=== PATIENT | male | born 1965 | race Two or more races ===

== ENCOUNTER 2016-05-24 14:02 | Inpatient (IN) | payer OTHER, MEDICAID ==
[2016-05-24] VITALS (8 sets, daily range): BP systolic 107–136; BP diastolic 47–76
[~2016-05-24] VITALS: Ht 167.6 cm; Wt 71.7 kg
[~2016-05-24 14:02] MED LIST: ALPRAZOLAM0.25 MG ORAL; CALCIUM 500 MG1 EAC1 PO; CLARITIN10 M2 ORAL; CREON DR 24,001 EACH PO; FUROSEMIDE40 MG ORAL; GENVOYA TABLET1 EACH PO; HIV meds; IMODIUM2 MG ORAL; MOVANTIK25 MG PO; OXYCODONE HCL15 M1 ORAL; SPIRONOLACTONE50 MG ORAL; STRIBILD TABLE1 EACH PO; WELLBUTRIN XL150 MG ORAL
[2016-05-24] MEDS ORDERED: Pantoprazole Inj IV ONE (14:30)
[2016-05-24 14:54] LABS: MEAN CORPUSCULAR HEMOGLOBIN 28.8 PG (27.0-31.0); MEAN CORPUSCULAR HGB CONC 32.7 G/DL (32.0-36.0); MEAN CORPUSCULAR VOLUME 88 FL (80-99); PLATELET COUNT 343 K/UL (150-450); RED BLOOD COUNT 2.23 M/UL (4.70-6.10); RED CELL DISTRIBUTION WIDTH 16.3 % (11.6-14.8); WHITE BLOOD COUNT 11.9 K/UL (4.8-10.8)
[2016-05-24 15:07] LABS: INR 1.1 (0.9-1.1)
[2016-05-24 15:13] LABS: ALANINE AMINOTRANSFERASE 22 U/L (3-41); ANION GAP 16 (5-15); ASPARTATE AMINO TRANSFERASE 26 U/L (5-40); CALCIUM 7.1 mg/dL (8.6-10.2); CARBON DIOXIDE 21 mEQ/L (20-30); CHLORIDE 95 mEQ/L (98-107); GLOMERULAR FILTRATION RATE > 60 mL/min (>60); HEMOLYSIS 1; LIPASE 25 U/L (< 60); POTASSIUM 4.4 mEQ/L (3.4-4.9); REFLEX LACTIC ACID YES OR NO YES; SODIUM 132 mEQ/L (135-145)
[2016-05-24 15:23] LABS: CKMB 2.3 ng/mL (< 6.7)
[2016-05-24 15:25] LABS: TROPONIN I < 0.30 ng/mL (<=0.30)
[2016-05-24] MEDS ORDERED: cefTRIAXone 1 GM in NS 55 ML IVPB ONE (16:00)
--- NOTE | 2016-05-24 16:01 | Emergency Room Report ---
History of Present Illness General Chief Complaint: Gastrointestinal Bleed Source: Patient Present Illness HPI 50-year-old male presents ED her evaluation. States the last 3 days he's been noticing blood in his stool. Dark stools with blood in the toilet. Denies any pain. States he feels weak. States that is taking indomethacin for a long time for vague abdominal pain. Patient denies taking any other blood thinners. Notes history of HIV. States he is compliant with his medications.Shortness of breath. Denies cough. Denies fevers or chills. Denies chest pain. No other aggravating relieving factors. Denies any other associated symptom Allergies: Coded Allergies: No Known Allergies (Unverified , 09/12/14) Patient History Past Medical History: other - HIV Past Surgical History: none Pertinent Family History: none Social History: Denies: alcohol use, drug use, smoking Immunizations: UTD Reviewed Nursing Documentation: PMH: Agreed, PSxH: Agreed Nursing Documentation-PMH Past Medical History: No History, Except For Hx Gastrointestinal Problems: Yes Review of Systems All Other Systems: negative except mentioned in HPI Physical Exam Vital Signs Date Time Temp Pulse Resp B/P Pulse Ox O2 Delivery O2 Flow Rate FiO2 05/24/16 14:12 98.1 122 28 124/59 100 Room Air Sp02 EP Interpretation: reviewed, normal General Appearance: no apparent distress, alert, GCS 15, non-toxic Head: normocephalic, atraumatic Eyes: bilateral eye PERRL, bilateral eye normal inspection ENT: hearing grossly normal, normal pharynx, no angioedema, normal voice Neck: full range of motion, supple/symm/no masses Respiratory: chest non-tender, lungs clear, normal breath sounds, speaking full sentences Cardiovascular #1: regular rate, rhythm, no edema Cardiovascular #2: 2+ carotid (R), 2+ carotid (L), 2+ radial (R), 2+ radial (L) , 2+ dorsalis pedis (R), 2+ dorsalis pedis (L) Gastrointestinal: normal bowel sounds, non tender, soft, non-distended, no guarding, no rebound Rectal: deferred Genitourinary: normal inspection, no CVA tenderness Musculoskeletal: back normal, gait/station normal, normal range of motion, non- tender Neurologic: alert, oriented x3, responsive, motor strength/tone normal, sensory intact, speech normal Psychiatric: judgement/insight normal, memory normal, mood/affect normal, no suicidal/homicidal ideation Reflexes: 3+ bicep (R), 3+ bicep (L), 3+ tricep (R), 3+ tricep (L), 3+ knee (R) , 3+ knee (L) Skin: normal color, no rash, warm/dry, well hydrated Lymphatic: no adenopathy Procedures Critical Care Time Critical Care Time i. I feel this is a highly complex case requiring extensive working including EKG/Rhythm strip, Xray/CT/US, Blood/urine lab work, repeat exams while in ED, and administration of strong opiates/narcotics for pain control, admission to hospital or close patient follow up. Total time: 30 min bedside evaluation and treatment excludes procedures (EKG). Reason for critical care: low Hb, LGIB Possible complications: hypotension, hypertension, NM, shock, arrhythmias, metabolic acidosis, end organ damage, respiratory failure. Interventions: labs, IVFs, EKG, CXR. Protonix. PRBCs Course: Patient brought in for blood in stool. Feeling weak. Hemoglobin 6.4. Vital stable. Given Protonix. Given 2 units PRBCs. Consultations: nursing staff, EMS, family Performed by: Dr Sellers Tolerated well condition = serious j. because of unstable vital signs this patient had a condition that could potentially threaten life or limb. I feel this is a critical patient who required my full attention while patient was considered critical. Total Critical Care Time excluding procedures was greater than 35 minutes Medical Decision Making Diagnostic Impression: Primary Impression: Lower GI bleed Additional Impression: Anemia Qualified Codes: D64.9 - Anemia, unspecified ER Course Hospital Course 50-year-old M presents to ED with rectal bleeding Differential diagnoses include: UGIB, LGIB, hemorrhoids Clinical course Patient placed on stretcher. equipment monitor phototypesetting. After initial history and physical I ordered labs, IV fluids, EKG, CXR. protonix Labs - minimal leukocytosis, Hb 6.4. electrolytes ok. trop negative, lactate 2.4 EKG - NSR, no acute changes CXR - some atelectasis, no acute infiltrate Given IVFs. Given Abx. given PRBCs Case discussed with Dr. Cade and he agreed to accept the patient to his service for further care and support. Dr amaya consulted I feel this is a highly complex case requiring extensive working including EKG/ Rhythm strip, Xray/CT/US, Blood/urine lab work, repeat exams while in ED, and administration of strong opiates/narcotics for pain control, admission to hospital or close patient follow up. Diagnosis - LGIB, anemia Patient admitted to telemetry in serious condition Labs Test 05/24/16 14:30 05/24/16 15:30 White Blood Count 11.9 K/UL (4.8-10.8) Red Blood Count 2.23 M/UL (4.70-6.10) Hemoglobin 6.4 G/DL (14.2-18.0) Hematocrit 19.7 % (42.0-52.0) Mean Corpuscular Volume 88 FL (80-99) Mean Corpuscular Hemoglobin 28.8 PG (27.0-31.0) Mean Corpuscular Hemoglobin Concent 32.7 G/DL (32.0-36.0) Red Cell Distribution Width 16.3 % (11.6-14.8) Platelet Count 343 K/UL (150-450) Mean Platelet Volume 7.0 FL (6.5-10.1) Neutrophils (%) (Auto) % (45.0-75.0) Lymphocytes (%) (Auto) % (20.0-45.0) Monocytes (%) (Auto) % (1.0-10.0) Eosinophils (%) (Auto) % (0.0-3.0) Basophils (%) (Auto) % (0.0-2.0) Prothrombin Time 11.0 SEC (9.30-11.50) Prothromb Time International Ratio 1.1 (0.9-1.1) Activated Partial Thromboplast Time 21 SEC (23-33) Sodium Level 132 mEQ/L (135-145) Potassium Level 4.4 mEQ/L (3.4-4.9) Chloride Level 95 mEQ/L (98-107) Carbon Dioxide Level 21 mEQ/L (20-30) Anion Gap 16 (5-15) Blood Urea Nitrogen 34 mg/dL (7-23) Creatinine 1.0 mg/dL (0.7-1.2) Estimat Glomerular Filtration Rate > 60 mL/min (>60) Glucose Level 135 mg/dL (74-106) Lactic Acid Level 2.40 mmol/L (0.66-2.22) Calcium Level 7.1 mg/dL (8.6-10.2) Total Bilirubin < 0.2 mg/dL (0.0-1.2) Aspartate Amino Transf (AST/SGOT) 26 U/L (5-40) Alanine Aminotransferase (ALT/SGPT) 22 U/L (3-41) Alkaline Phosphatase 68 U/L (40-129) Total Creatine Kinase 115 U/L (38-174) Creatine Kinase MB 2.3 ng/mL (< 6.7) Creatine Kinase MB Relative Index 2.0 Troponin I < 0.30 ng/mL (<=0.30) Total Protein 5.0 g/dL (6.6-8.7) Albumin 2.5 g/dL (3.5-5.2) Globulin 2.5 g/dL Albumin/Globulin Ratio 1.0 (1.0-2.7) Lipase 25 U/L (< 60) EKG Diagnostic Results Rate: normal Rhythm: NSR ST Segments: no acute changes ASA given to the pt in ED: No Rhythm Strip Diag. Results EP Interpretation: yes Rhythm: NSR, no PVC's, no ectopy Chest X-Ray Diagnostic Results EP Interpretation: Yes Findings: no consolidation, no effusion, no pneumothorax, no acute cardiopulmonary disease Number of Views: 1 Last Vital Signs Date Time Temp Pulse Resp B/P Pulse Ox O2 Delivery O2 Flow Rate FiO2 05/24/16 15:23 101 22 117/76 100 Room Air 05/24/16 14:22 98.1 Status: improved Disposition: ADMITTED INPATIENT Condition: Serious Referrals: ELINA MOORE (PCP) OLIVIA SELLERS M.D. May 24, 2016 16:01
[2016-05-24 16:07] LABS: LYMPHOCYTES % (MANUAL) 18 % (20-45); NEUTROPHILS % (MANUAL) 76 % (45-75); TOTAL CELLS COUNTED 100
[2016-05-24 16:08] LABS: ANISOCYTOSIS 2+; HYPOCHROMASIA 2+; MICROCYTES 2+; POLYCHROMASIA 1+
[2016-05-24 16:09] LABS: BAND NEUTROPHILS % (MANUAL) 0 % (0-8); BASOPHILS % (MANUAL) 0 % (0-2); EOSINOPHILS % (MANUAL) 0 % (0-3); PLATELET ESTIMATE ADEQUATE; PLATELET MORPHOLOGY NORMAL
--- NOTE | 2016-05-24 18:12 | GI Initial Consult Note ---
History of Present Illness General Date patient seen: May 24, 2016 Time patient seen: 18:12 Reason for Hospitalization: Gastrointestinal Bleed Referring physician: Rayo Reason for Consultation: UGIB Present Illness HPI 50-year-old male presents ED her evaluation. States the last 3 days he's been noticing blood in his stool. Dark stools with blood in the toilet. Denies any pain. States he feels weak. States that is taking indomethacin for a long time for vague abdominal pain. Patient denies taking any other blood thinners. Notes history of HIV. States he is compliant with his medications.Shortness of breath. Denies cough. Denies fevers or chills. Denies chest pain. No other aggravating relieving factors. Denies any other associated symptom GI CONSULT: HPI as noted above. GI consulted for dark stools most likely from UGIB. Pt seen in ER, awake A&Ox4 NAD c/o of nausea without vomiting. According to the the patient he has been having dark stools x 3 days. This is the first episode that has occurred to him. Social ETOH use, denies tobacco and IVDA use. Occasional NSAID use for arthritic pain. Pt presents today anemia due to acute blood loss with min leukocytosis. No history of endoscopic procedures. Labs - minimal leukocytosis, Hb 6.4. electrolytes ok. trop negative, lactate 2.4 EKG - NSR, no acute changes CXR - some atelectasis, no acute infiltrate Given IVFs. Given Abx. given PRBCs Home Meds Reported Medications Elvitegr/Cobicist/Emtric/Tenof (STRIBILD TABLET) 1 Each Tablet, 1 EACH PO DAILY , TAB 03/31/15 Bupropion Hcl* (WELLBUTRIN XL*) 150 Mg Tab.er.24h, 150 MG ORAL DAILY for 30 Days , TAB 0 Refills 03/31/15 Calcium Carbonate/Vitamin D3 (Calcium 500 mg Chewable Tablet) 1 Each Tab.chew, 1 EACH PO DAILY, TAB 03/31/15 Alprazolam* (XANAX*) 0.25 Mg Tablet, 0.25 MG ORAL DAILY, TAB 03/31/15 Loperamide HCl (Loperamide) 2 Mg Cap, 2 MG ORAL QID, #20 CAP 0 Refills 03/31/15 Loratadine (CLARITIN) 10 Mg Capsule, 10 MG ORAL DAILY, CAP 2/22/16 Elviteg/Jessica/Emtric/Tenofo Ala (Genvoya Tablet) 1 Each Tablet, 1 EACH PO DAILY, TAB 03/31/15 Lipase/Protease/Amylase (VÍCTOR WALTERS 24,000 UNITS CAPSULE) 1 Each Capsule.dr, 1 EACH PO TID, CAP 03/31/15 Naloxegol Oxalate (Movantik) 25 Mg Tablet, 25 MG PO DAILY, TAB 03/27/15 Spironolactone* (ALDACTONE*) 50 Mg Tablet, 100 MG ORAL DAILY, TAB 03/27/15 Furosemide* (LASIX*) 40 Mg Tablet, 20 MG ORAL DAILY, TAB 03/27/15 Oxycodone Hcl* (OXYCODONE HCL*) 15 Mg Tablet, 15 MG ORAL Q12HR Y for For Pain, # 30 TAB 0 Refills 03/27/15 Med list reviewed/reconciled: Yes Allergies: Coded Allergies: No Known Allergies (Unverified , 09/12/14) Patient History History Provided By: Patient, Medical Record PMH Narrative Past Medical History: other - HIV Past Surgical History: none Pertinent Family History: none Social History: Denies: alcohol use, drug use, smoking Immunizations: UTD Reviewed Nursing Documentation: PMH: Agreed, PSxH: Agreed Nursing Documentation-PMH Past Medical History: No History, Except For Hx Gastrointestinal Problems: Yes Social History: Reports: alcohol use - social Review of Systems All Other Systems: negative except mentioned in HPI Physical Exam Vital Signs Date Time Temp Pulse Resp B/P Pulse Ox O2 Delivery O2 Flow Rate FiO2 05/24/16 14:12 98.1 122 28 124/59 100 Room Air Sp02 EP Interpretation: reviewed Labs Laboratory Tests Test 05/24/16 14:30 05/24/16 15:30 White Blood Count 11.9 K/UL (4.8-10.8) H Red Blood Count 2.23 M/UL (4.70-6.10) L Hemoglobin 6.4 G/DL (14.2-18.0) *L Hematocrit 19.7 % (42.0-52.0) L Mean Corpuscular Volume 88 FL (80-99) Mean Corpuscular Hemoglobin 28.8 PG (27.0-31.0) Mean Corpuscular Hemoglobin Concent 32.7 G/DL (32.0-36.0) Red Cell Distribution Width 16.3 % (11.6-14.8) H Platelet Count 343 K/UL (150-450) Mean Platelet Volume 7.0 FL (6.5-10.1) Neutrophils (%) (Auto) % (45.0-75.0) Lymphocytes (%) (Auto) % (20.0-45.0) Monocytes (%) (Auto) % (1.0-10.0) Eosinophils (%) (Auto) % (0.0-3.0) Basophils (%) (Auto) % (0.0-2.0) Differential Total Cells Counted 100 Neutrophils % (Manual) 76 % (45-75) H Lymphocytes % (Manual) 18 % (20-45) L Monocytes % (Manual) 6 % (1-10) Eosinophils % (Manual) 0 % (0-3) Basophils % (Manual) 0 % (0-2) Band Neutrophils 0 % (0-8) Platelet Estimate Adequate Platelet Morphology Normal Polychromasia 1+ Hypochromasia 2+ Anisocytosis 2+ Microcytosis 2+ Prothrombin Time 11.0 SEC (9.30-11.50) Prothromb Time International Ratio 1.1 (0.9-1.1) Activated Partial Thromboplast Time 21 SEC (23-33) L Sodium Level 132 mEQ/L (135-145) L Potassium Level 4.4 mEQ/L (3.4-4.9) Chloride Level 95 mEQ/L (98-107) L Carbon Dioxide Level 21 mEQ/L (20-30) Anion Gap 16 (5-15) H Blood Urea Nitrogen 34 mg/dL (7-23) H Creatinine 1.0 mg/dL (0.7-1.2) Estimat Glomerular Filtration Rate > 60 mL/min (>60) Glucose Level 135 mg/dL (74-106) H Lactic Acid Level 2.40 mmol/L (0.66-2.22) H 1.90 mmol/L (0.66-2.22) Calcium Level 7.1 mg/dL (8.6-10.2) L Total Bilirubin < 0.2 mg/dL (0.0-1.2) Aspartate Amino Transf (AST/SGOT) 26 U/L (5-40) Alanine Aminotransferase (ALT/SGPT) 22 U/L (3-41) Alkaline Phosphatase 68 U/L (40-129) Total Creatine Kinase 115 U/L (38-174) Creatine Kinase MB 2.3 ng/mL (< 6.7) Creatine Kinase MB Relative Index 2.0 Troponin I < 0.30 ng/mL (<=0.30) Total Protein 5.0 g/dL (6.6-8.7) L Albumin 2.5 g/dL (3.5-5.2) L Globulin 2.5 g/dL Albumin/Globulin Ratio 1.0 (1.0-2.7) Lipase 25 U/L (< 60) General Appearance: well appearing, no apparent distress, alert Head: normocephalic EENT: PERRL/EOMI, normal ENT inspection Neck: supple Respiratory: normal breath sounds, no respiratory distress Cardiovascular: normal rate Gastrointestinal: normal inspection, non tender, soft, normal bowel sounds Rectal: deferred Genitourinary: normal inspection Musculoskeletal: back normal Neurologic: normal inspection, alert, oriented x3, responsive Psychiatric: normal inspection, judgement/insight normal, memory normal Skin: normal inspection, normal color, no rash, warm/dry Lymphatic: normal inspection, no adenopathy GI: Plan Problems: (1) Upper GI bleed (2) Black stool (3) Leukocytosis (4) Anemia (5) Protein malnutrition Plan pt scheduled for EGD tomorrow to evaluate dark stools - okay for CLD when admitted to the floor, NPO @ MN. ordered protonix gtt monitor H&H, transfuse prn if Hgb < 7.0 hold all blood thinners abx fu labs Discussed with Dr. Macario. Thank you for referring this patient, we will follow. Gloria Patrick N.P. May 24, 2016 18:12
[2016-05-24 19:47] LABS: APPEARANCE,URINE CLEAR; KETONES,URINE 3+ (NEGATIVE); LEUKOCYTE ESTERASE ,URINE NEGATIVE (NEGATIVE); NITRITE,URINE NEGATIVE (NEGATIVE); PH,URINE 6.5 (4.5-8.0); PROTEIN,URINE NEGATIVE (NEGATIVE); UROBILINOGEN,URINE NORMAL MG/DL (0.0-1.0)
[2016-05-24] MEDS ORDERED: Pantoprazole Inj ONE (20:17)
[2016-05-24] MEDS: Pantoprazole 80 MG in NS 250 ML IV SCH (20:23)
[2016-05-24] MEDS ORDERED: Morphine Sulfate 4mg/ml Inj IVP ONE (21:15)
[2016-05-25] VITALS (12 sets, daily range): BP systolic 110–141; BP diastolic 53–76
[2016-05-25] MEDS ORDERED: Morphine Sulfate 4mg/ml Inj IVP ONE (01:45)
[2016-05-25 06:23] LABS: MEAN CORPUSCULAR HGB CONC 33.4 G/DL (32.0-36.0); MEAN CORPUSCULAR VOLUME 90 FL (80-99); MEAN PLATELET VOLUME 6.9 FL (6.5-10.1); PLATELET COUNT 245 K/UL (150-450); RED BLOOD COUNT 2.29 M/UL (4.70-6.10); WHITE BLOOD COUNT 14.3 K/UL (4.8-10.8)
[2016-05-25] MEDS: Pantoprazole 80 MG in NS 250 ML IV SCH ×3 (06:30→19:41)
[2016-05-25 06:35] LABS: INR 1.2 (0.9-1.1); PROTHROMBIN TIME 12.3 SEC (9.30-11.50)
[2016-05-25 06:41] LABS: ANION GAP 11 (5-15); CALCIUM 6.2 mg/dL (8.6-10.2); CARBON DIOXIDE 21 mEQ/L (20-30); CHLORIDE 103 mEQ/L (98-107); GLOMERULAR FILTRATION RATE > 60 mL/min (>60); HEMOLYSIS 0; POTASSIUM 4.6 mEQ/L (3.4-4.9); SODIUM 135 mEQ/L (135-145)
--- NOTE | 2016-05-25 09:04 | Diagnostic Imaging Report ---
Indication: WEAK Technique: One view of the chest Comparison: none Findings: Bands of atelectasis are seen in the left perihilar region. Lungs and pleural spaces are otherwise clear. Heart size is normal Impression: No acute process
[2016-05-25 10:21] LABS: ANISOCYTOSIS 1+; BAND NEUTROPHILS % (MANUAL) 0 % (0-8); BASOPHILS % (MANUAL) 0 % (0-2); EOSINOPHILS % (MANUAL) 0 % (0-3); HYPOCHROMASIA 1+; LYMPHOCYTES % (MANUAL) 16 % (20-45); NEUTROPHILS % (MANUAL) 76 % (45-75); NUCLEATED RED BLOOD CELLS 2 /100 WBC; PLATELET ESTIMATE ADEQUATE; PLATELET MORPHOLOGY NORMAL; TOTAL CELLS COUNTED 100
[2016-05-25 10:22] LABS: POLYCHROMASIA 2+
[2016-05-25] MEDS ORDERED: Pneumococcal Vaccine 25mcg/0.5ml IM ONE (12:00)
[2016-05-25] MEDS ORDERED: Meningococcal Polysacc Vaccine Inj SUBQ ONE (12:00)
[2016-05-25] MEDS ORDERED: NS 550ML IV ONE (12:03)
--- NOTE | 2016-05-25 12:06 | Pre-Procedure Note/Attestation ---
Pre-Procedure Note/Attestation Complete Prior to Procedure Planned Procedure: not applicable Procedure Narrative: egd Indications for Procedure Pre-Operative Diagnosis: gib Attestation I attest that I discussed the nature of the procedure; its benefits; risks and complications; and alternatives (and the risks and benefits of such alternatives ), prior to the procedure, with the patient (or the patient's legal outside dealer sales representative). I attest that, if there was a reasonable possibility of needing a blood transfusion, the patient (or the patient's legal outside dealer sales representative) was given the [facility] standardized written summary, pursuant to the Srinivas Larissa Blood Safety Act ([place] Health and Safety Code # 1645, as amended). I attest that I re-evaluated the patient just prior to the surgery and that there has been no change in the patient's H&P, except as documented below: JET ORLAND May 25, 2016 12:06
--- NOTE | 2016-05-25 12:17 | Endoscopy Procedure Note ---
Endoscopy Procedure Note Indication for Procedure: gib Procedures Performed: EGD Operative Findings/Diagnosis: gastritis Specimen: yes Pt Tolerated Procedure Well: Yes Estimated Blood Loss: none Anesthesiologist: fam Anesthesia: MAC Implant(s) used?: No 50 yrs or older w/o bx or poly: Not Applicable 10yrs. F/U not recommended: Not Applicable JET ROLAND May 25, 2016 12:17
--- NOTE | 2016-05-25 12:25 | Anethesia Preoperative Eval ---
Anesthesia Pre-op PMH/ROS General Date of Evaluation: May 25, 2016 Anesthesiologist: Samy ASA Score: ASA 2 Mallampati Score Class I : Soft palate, uvula, fauces, pillars visible Class II: Soft palate, uvula, fauces visible Class III: Soft palate, base of uvula visible Class IV: Only hard plate visible Mallampati Classification: Class II Surgeon: Renaldo Diagnosis: GI bleed Surgical Procedure: EGD Anesthesia History: none Family History: no anesthesia problems Allergies: Coded Allergies: No Known Allergies (Unverified , 09/12/14) Medications: see eMAR Past Medical History Gastrointestinal/Genitourinary: Reports: GERD, Denies: CRI, ESRD, other Neurologic/Psychiatric: Reports: depression/anxiety, Denies: CVA, TIA, dementia, other Endocrine: Denies: DM, hypothyroidism, other, steroids HEENT: Denies: OUZINKIE (L), OUZINKIE (R), cataract (L), cataract (R), glaucoma, other Hematology/Immune: Reports: other - HIV, Denies: DVT, anemia, bleeding disorder Musculoskeletal/Integumentary: Denies: DDD, DJD, OA, RA, edema, other PSxH Narrative: Denies Anesthesia Pre-op Phys. Exam Physician Exam Last Vital Signs Date Time Temp Pulse Resp B/P Pulse Ox O2 Delivery O2 Flow Rate FiO2 05/25/16 11:27 98.1 96 20 141/68 99 Room Air Constitutional: NAD Cardiovascular: RRR Respiratory: CTA Airway Exam Mallampati Score: Class II MO: full ROM: full Teeth: intact Anesthesia Pre-op A/P Labs Hematology Test 05/24/16 14:30 05/25/16 05:55 White Blood Count 11.9 K/UL (4.8-10.8) H 14.3 K/UL (4.8-10.8) H Red Blood Count 2.23 M/UL (4.70-6.10) L 2.29 M/UL (4.70-6.10) L Hemoglobin 6.4 G/DL (14.2-18.0) *L 6.9 G/DL (14.2-18.0) *L Hematocrit 19.7 % (42.0-52.0) L 20.6 % (42.0-52.0) L Mean Corpuscular Volume 88 FL (80-99) 90 FL (80-99) Mean Corpuscular Hemoglobin 28.8 PG (27.0-31.0) 30.0 PG (27.0-31.0) Mean Corpuscular Hemoglobin Concent 32.7 G/DL (32.0-36.0) 33.4 G/DL (32.0-36.0) Red Cell Distribution Width 16.3 % (11.6-14.8) H 15.0 % (11.6-14.8) H Platelet Count 343 K/UL (150-450) 245 K/UL (150-450) Mean Platelet Volume 7.0 FL (6.5-10.1) 6.9 FL (6.5-10.1) Neutrophils (%) (Auto) % (45.0-75.0) % (45.0-75.0) Lymphocytes (%) (Auto) % (20.0-45.0) % (20.0-45.0) Monocytes (%) (Auto) % (1.0-10.0) % (1.0-10.0) Eosinophils (%) (Auto) % (0.0-3.0) % (0.0-3.0) Basophils (%) (Auto) % (0.0-2.0) % (0.0-2.0) Differential Total Cells Counted 100 100 Neutrophils % (Manual) 76 % (45-75) H 76 % (45-75) H Lymphocytes % (Manual) 18 % (20-45) L 16 % (20-45) L Monocytes % (Manual) 6 % (1-10) 8 % (1-10) Eosinophils % (Manual) 0 % (0-3) 0 % (0-3) Basophils % (Manual) 0 % (0-2) 0 % (0-2) Band Neutrophils 0 % (0-8) 0 % (0-8) Platelet Estimate Adequate Adequate Platelet Morphology Normal Normal Polychromasia 1+ 2+ Hypochromasia 2+ 1+ Anisocytosis 2+ 1+ Microcytosis 2+ Nucleated Red Blood Cells 2 /100 WBC Coagulation Test 05/24/16 14:30 05/25/16 05:55 Prothrombin Time 11.0 SEC (9.30-11.50) 12.3 SEC (9.30-11.50) H Prothromb Time International Ratio 1.1 (0.9-1.1) 1.2 (0.9-1.1) H Activated Partial Thromboplast Time 21 SEC (23-33) L 22 SEC (23-33) L Chemistry Test 05/24/16 14:30 05/24/16 15:30 05/25/16 05:55 Sodium Level 132 mEQ/L (135-145) L 135 mEQ/L (135-145) Potassium Level 4.4 mEQ/L (3.4-4.9) 4.6 mEQ/L (3.4-4.9) Chloride Level 95 mEQ/L (98-107) L 103 mEQ/L (98-107) Carbon Dioxide Level 21 mEQ/L (20-30) 21 mEQ/L (20-30) Anion Gap 16 (5-15) H 11 (5-15) Blood Urea Nitrogen 34 mg/dL (7-23) H 35 mg/dL (7-23) H Creatinine 1.0 mg/dL (0.7-1.2) 1.0 mg/dL (0.7-1.2) Estimat Glomerular Filtration Rate > 60 mL/min (>60) > 60 mL/min (>60) Glucose Level 135 mg/dL (74-106) H 133 mg/dL (74-106) H Lactic Acid Level 2.40 mmol/L (0.66-2.22) H 1.90 mmol/L (0.66-2.22) Calcium Level 7.1 mg/dL (8.6-10.2) L 6.2 mg/dL (8.6-10.2) L Total Bilirubin < 0.2 mg/dL (0.0-1.2) Aspartate Amino Transf (AST/SGOT) 26 U/L (5-40) Alanine Aminotransferase (ALT/SGPT) 22 U/L (3-41) Alkaline Phosphatase 68 U/L (40-129) Total Creatine Kinase 115 U/L (38-174) Creatine Kinase MB 2.3 ng/mL (< 6.7) Creatine Kinase MB Relative Index 2.0 Troponin I < 0.30 ng/mL (<=0.30) Total Protein 5.0 g/dL (6.6-8.7) L Albumin 2.5 g/dL (3.5-5.2) L Globulin 2.5 g/dL Albumin/Globulin Ratio 1.0 (1.0-2.7) Lipase 25 U/L (< 60) Studies Pre-op Studies: EKG - sr Risk Assessment & Plan Assessment: ASA II Plan: MAC Status Change Before Surgery: No Pre-Antibiotics Drug: N/A WILLIS LAND M.D. May 25, 2016 12:25
--- NOTE | 2016-05-25 12:28 | Immediate Post-Op Evaluation ---
Immediate Post-Op Evalulation Immediate Post-Op Evalulation Procedure: EGD Date of Evaluation: May 25, 2016 Time of Evaluation: 12:27 IV Fluids: 300 Blood Products: 0 Estimated Blood Loss: 0 Urinary Output: 0 Blood Pressure Systolic: 136 Blood Pressure Diastolic: 70 Pulse Rate: 92 Respiratory Rate: 16 O2 Sat by Pulse Oximetry: 99 Temperature (Fahrenheit): 98.9 Pain Score (1-10): 0 Nausea: No Vomiting: No Complications 0 Patient Status: awake, reacts, patent, none Hydration Status: adequate Drug: N/A WILLIS LAND M.D. May 25, 2016 12:28
[2016-05-25] MEDS ORDERED: Hyoscyamine 0.125mg tab ORAL PRN (13:30)
[2016-05-25] MEDS ORDERED: oxyCODONE 15mg IR tab ORAL PRN (13:30)
[2016-05-25] MEDS ORDERED: Morphine Sulfate 2mg/ml Inj IVP PRN (13:45)
[2016-05-25] MEDS ORDERED: Nulytely 4L ORAL ONE (15:00)
[2016-05-25] MEDS: Dicyclomine HCl 10mg/5ml oral soln ORAL SCH ×2 (18:00→21:00)
--- NOTE | 2016-05-25 18:37 | Procedure Note ---
DATE OF PROCEDURE: 05/25/2016 SURGEON: Jaswant Macario M.D. PROCEDURE: Upper endoscopy with biopsy. ANESTHESIOLOGIST: Dr. Lamb. INSTRUMENT: Olympus adult flexible upper endoscope. INDICATION: Upper GI bleeding. REASON FOR PROCEDURE: The procedure, risks, benefits, and possible consequences, including hemorrhage, aspiration, perforation and infection, and alternative treatments, were explained to the patient/legal guardian by Dr. Jaswant Macario and the patient/legal guardian understood and accepted these risks. DESCRIPTION OF PROCEDURE: After informed consent was obtained and the patient was adequately sedated, Olympus upper endoscope was advanced from mouth into the second portion of the duodenum and retroflexion was performed in the stomach. The patient had diffuse gastritis. Random biopsy from antrum was obtained to rule out H. pylori infection. Otherwise, the rest of the upper endoscopic examination is grossly within normal limits. The patient tolerated the procedure very well without any complication. SUMMARY OF FINDINGS: Gastritis, otherwise normal upper endoscopy examination. RECOMMENDATIONS: 1. Follow up biopsy results. 2. Plan for colonoscopy tomorrow. I want to thank, Dr. Mendez, for this kind referral. Jaswant Macario M.D. DR: ELIECER JOB#: [id number] CC: Patrick Mendez M.D.
[2016-05-25] MEDS: oxyCODONE 15mg IR tab ORAL PRN (23:59)
[2016-05-26] VITALS (12 sets, daily range): BP systolic 102–154; BP diastolic 45–88
[2016-05-26] MEDS ORDERED: Pantoprazole Inj ONE (02:34)
[2016-05-26] MEDS: Pantoprazole 80 MG in NS 250 ML IV SCH ×2 (03:54→23:09)
[2016-05-26] MEDS ORDERED: Propofol 10mg/ml 20ml IV ONE (07:00)
[2016-05-26] MEDS ORDERED: Lidocaine 1% MPF 10mg/ml 5ml ONE (07:00)
[2016-05-26] MEDS ORDERED: NS 550ML IV ONE (07:15)
--- NOTE | 2016-05-26 07:20 | Pre-Procedure Note/Attestation ---
Pre-Procedure Note/Attestation Complete Prior to Procedure Planned Procedure: not applicable Procedure Narrative: colonoscopy Indications for Procedure Pre-Operative Diagnosis: gib Attestation I attest that I discussed the nature of the procedure; its benefits; risks and complications; and alternatives (and the risks and benefits of such alternatives ), prior to the procedure, with the patient (or the patient's legal construction representative). I attest that, if there was a reasonable possibility of needing a blood transfusion, the patient (or the patient's legal construction representative) was given the [facility] standardized written summary, pursuant to the Srinivas Larissa Blood Safety Act ([place] Health and Safety Code # 1645, as amended). I attest that I re-evaluated the patient just prior to the surgery and that there has been no change in the patient's H&P, except as documented below: JET ROLAND May 26, 2016 07:20
[2016-05-26 07:37] LABS: MEAN CORPUSCULAR HEMOGLOBIN 30.4 PG (27.0-31.0); MEAN CORPUSCULAR HGB CONC 32.8 G/DL (32.0-36.0); MEAN CORPUSCULAR VOLUME 93 FL (80-99); MEAN PLATELET VOLUME 7.6 FL (6.5-10.1); PLATELET COUNT 241 K/UL (150-450); RED BLOOD COUNT 1.61 M/UL (4.70-6.10); RED CELL DISTRIBUTION WIDTH 18.5 % (11.6-14.8)
--- NOTE | 2016-05-26 07:41 | Anethesia Preoperative Eval ---
Anesthesia Pre-op PMH/ROS General Date of Evaluation: May 26, 2016 Time of Evaluation: 07:00 Anesthesiologist: bridger ASA Score: ASA 2 Mallampati Score Class I : Soft palate, uvula, fauces, pillars visible Class II: Soft palate, uvula, fauces visible Class III: Soft palate, base of uvula visible Class IV: Only hard plate visible Mallampati Classification: Class II Surgeon: monique Diagnosis: lower gi bleed Surgical Procedure: colonoscopy Anesthesia History: none Family History: no anesthesia problems Allergies: Coded Allergies: No Known Allergies (Unverified , 09/12/14) Medications: see eMAR Past Medical History Cardiovascular: Denies: CAD, HTN, [place], arrhythmia, other, valve dz Pulmonary: Denies: COPD, [place], asthma, other Gastrointestinal/Genitourinary: Reports: GERD Neurologic/Psychiatric: Reports: depression/anxiety Endocrine: Denies: DM, hypothyroidism, other, steroids Hematology/Immune: Reports: anemia Musculoskeletal/Integumentary: Denies: DDD, DJD, OA, RA, edema, other PSxH Narrative: egd Anesthesia Pre-op Phys. Exam Physician Exam Last Vital Signs Date Time Temp Pulse Resp B/P Pulse Ox O2 Delivery O2 Flow Rate FiO2 05/26/16 04:00 89 05/26/16 04:00 98.1 18 139/56 100 Room Air 05/25/16 12:32 2.0 Constitutional: NAD Neurologic: CN 2-12 intact Cardiovascular: RRR Respiratory: CTA Gastrointestinal: S/NT/ND Airway Exam Mallampati Classification 2 Mallampati Score: Class II MO: full ROM: full Dentures: no lower, no upper Anesthesia Pre-op A/P Labs Hematology Test 05/26/16 06:25 White Blood Count Pending Red Blood Count Pending Hemoglobin Pending Hematocrit Pending Mean Corpuscular Volume Pending Mean Corpuscular Hemoglobin Pending Mean Corpuscular Hemoglobin Concent Pending Red Cell Distribution Width Pending Platelet Count Pending Mean Platelet Volume Pending Neutrophils (%) (Auto) Pending Lymphocytes (%) (Auto) Pending Monocytes (%) (Auto) Pending Eosinophils (%) (Auto) Pending Basophils (%) (Auto) Pending Chemistry Test 05/26/16 06:25 Sodium Level Pending Potassium Level Pending Chloride Level Pending Carbon Dioxide Level Pending Blood Urea Nitrogen Pending Creatinine Pending Estimat Glomerular Filtration Rate Pending Glucose Level Pending Calcium Level Pending Total Bilirubin Pending Aspartate Amino Transf (AST/SGOT) Pending Alanine Aminotransferase (ALT/SGPT) Pending Alkaline Phosphatase Pending Total Protein Pending Albumin Pending Globulin Pending Studies Pre-op Studies: EKG - SR Risk Assessment & Plan Plan: mac Status Change Before Surgery: No Pre-Antibiotics Drug: none QUYNH SHAH CRNA May 26, 2016 07:41
[2016-05-26 07:50] LABS: ALANINE AMINOTRANSFERASE 14 U/L (3-41); ALBUMIN/GLOBULIN RATIO 1.1 (1.0-2.7); ANION GAP 11 (5-15); ASPARTATE AMINO TRANSFERASE 18 U/L (5-40); CALCIUM 6.6 mg/dL (8.6-10.2); CARBON DIOXIDE 24 mEQ/L (20-30); CHLORIDE 102 mEQ/L (98-107); CREATININE 0.9 mg/dL (0.7-1.2); GLOMERULAR FILTRATION RATE > 60 mL/min (>60); HEMOLYSIS 0; POTASSIUM 4.3 mEQ/L (3.4-4.9); SODIUM 137 mEQ/L (135-145); TOTAL PROTEIN 4.2 g/dL (6.6-8.7)
--- NOTE | 2016-05-26 07:54 | Endoscopy Procedure Note ---
Endoscopy Procedure Note Indication for Procedure: gib Procedures Performed: colonoscopy Operative Findings/Diagnosis: hemorrhoids Specimen: none Pt Tolerated Procedure Well: Yes Estimated Blood Loss: none Anesthesiologist: belle Anesthesia: MAC Implant(s) used?: No 50 yrs or older w/o bx or poly: Not Applicable 10yrs. F/U not recommended: Not Applicable JET ROLAND May 26, 2016 07:54
--- NOTE | 2016-05-26 07:59 | Immediate Post-Op Evaluation ---
Immediate Post-Op Evalulation Immediate Post-Op Evalulation Procedure: EGD Date of Evaluation: May 26, 2016 Time of Evaluation: 07:59 IV Fluids: 300 Blood Products: started Blood Pressure Systolic: 111 Blood Pressure Diastolic: 53 Pulse Rate: 70 Respiratory Rate: 14 O2 Sat by Pulse Oximetry: 98 Nausea: No Vomiting: No Complications none Patient Status: awake, patent Hydration Status: adequate Drug: none QUYNH SHAH CRNA May 26, 2016 07:59
--- NOTE | 2016-05-26 08:42 | 48 Hour Post Anesthesia Eval ---
Post Anesthesia Evaluation Procedure: colonscopy Date of Evaluation: May 26, 2016 Time of Evaluation: 08:42 Blood Pressure Systolic: 105 0: 48 Pulse Rate: 99 Respiratory Rate: 14 Temperature (Fahrenheit): 97.2 O2 Sat by Pulse Oximetry: 99 Airway: patent Nausea: No Vomiting: No Hydration Status: other - blood transfusion startd Mental Status/LOC: patient returned to baseline Post-Anesthesia Complications: none Follow-up care needed: N/A QUYNH SHAH CRNA May 26, 2016 08:42
[2016-05-26] MEDS: Dicyclomine HCl 10mg/5ml oral soln ORAL SCH ×4 (09:02→21:25)
[2016-05-26] MEDS ORDERED: NS 275ml ONE (09:52)
[2016-05-26] MEDS ORDERED: Tubing IV Secondary IV ONE (09:52)
[2016-05-26 10:51] LABS: ANISOCYTOSIS 1+; BAND NEUTROPHILS % (MANUAL) 0 % (0-8); BASOPHILS % (MANUAL) 0 % (0-2); EOSINOPHILS % (MANUAL) 0 % (0-3); HYPOCHROMASIA 2+; LYMPHOCYTES % (MANUAL) 13 % (20-45); NEUTROPHILS % (MANUAL) 80 % (45-75); NUCLEATED RED BLOOD CELLS 2 /100 WBC; PLATELET ESTIMATE ADEQUATE; PLATELET MORPHOLOGY NORMAL; POLYCHROMASIA 2+; TOTAL CELLS COUNTED 100
[2016-05-26 11:20] LABS: OTHERS PATHOLOGIST COMMENT
--- NOTE | 2016-05-26 12:39 | Diagnostic Imaging Report ---
Indication: Abdominal pain. History of GI bleed Technique: IV administration nonionic contrast. Arterial and venous phase spiral acquisitions obtained through the abdomen and pelvis. Multiplanar and 3-D reconstructions were generated. Total dose length product 854+953 mGycm. CTDIvol(s) 8, 24, 15, 17 mGy. Radiation dose was minimized using automated exposure control. Note that there was a delay between the arterial phase and late venous phase images, necessitating repeat contrast injection Comparison: Conventional CT abdomen 04/07/2015 Findings: No active contrast extravasation is demonstrated on the arterial phase images. However, on the delayed images, contrast is seen within the distal and terminal ileum, as well as throughout the colon. An actively extravasating lesion is not definitely demonstrated, however; suspect that contrast extravasation occurred in the interim between the 2 parts of the scan. There are scattered colonic diverticula. The wall of the jejunum is massively thickened, and there is also dilatation of the jejunum. The wall thickening extends well into the ileum, but the caliber of the small bowel gradually tapers. Of note, the intraluminal contrast within the small bowel is primarily seen within the nondilated distal and terminal ileum which does not demonstrate wall thickening. The superior mesenteric artery and proximal branches are patent without evidence of significant stenosis. There is moderate narrowing of the celiac origin. This may be from arcuate ligament compression. The inferior mesenteric artery is patent and nonstenotic. The small bowel wall thickening and dilatation were not evident previously. As well as reported previously, there is architectural distortion of the mesenteric root. The amount of abnormal soft tissue in this area appears decreased from the prior study. The downstream 3 cm above the superior mesenteric vein is patent. However upstream from this, the superior mesenteric vein is occluded. This was also evident previously. Extensive varices within the mesenteric root and periphery of the mesentery are again demonstrated. Congestion of the mesentery appears similar to the prior exam. The portal vein is patent. The appendix is not definitely demonstrated. No free or loculated intraperitoneal air is evident. There is trace ascites over the dome of the liver. Distal esophagus, stomach, duodenum are unremarkable. The liver, gallbladder, bile ducts, pancreas, spleen, right kidney are unremarkable. Left kidney demonstrates a subcentimeter low-attenuation cortical lesion which is too small to characterize but is also evident previously. The ureters and bladder are unremarkable. There are prominent but not frankly enlarged retroperitoneal lymph nodes. No pelvic mass or adenopathy. There are small bilateral pleural effusions. There is associated atelectasis at the lung bases. This is new since the previous study. The bones are unremarkable. When compared to the prior study, the focal fatty deposit in the left hepatic lobe is not evident currently. Impression: On the delayed phase images, there is contrast within the distal small bowel and the colon, indicative of active GI bleeding. Possibly due to the timing issues described above, the exact site/shortness of the bleeding is not demonstrated. Given the involvement of the distal ileum, most likely distal ileal source. 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 As described previously, there is evidence of desmoplastic response in the mesenteric root, also described previously. This is still evident although no associated mass is currently evident. The point of occlusion of the superior mesenteric vein is at the site of the desmoplasia, and likely related to it. There are again demonstrated fairly extensive mesenter -- ic varices, presumably related to such Massive small bowel wall thickening and dilatation, most striking proximally within the jejunum, but also involving the proximal and mid ileum. Findings are consistent with enteritis. It is conceivable that this is related to the mesenteric venous occlusion. However, as the mesenteric venous occlusion is not a new finding, other etiologies, especially infectious/inflammatory are more likely. No evidence of proximal mesenteric arterial insufficiency. Interestingly, the extravasated contrast is only seen within the normal distal small bowel, so the GI bleed could be unrelated to the small bowel abnormality Diverticulosis. No evidence of diverticulitis Small bilateral pleural effusions and associated basilar atelectasis Trace ascites Small subcentimeter low-attenuation left renal lesion, too small to characterize, most likely benign simple cortical cyst. Also evident previously. No further followup necessary Findings discussed by phone with Dr. Mendez at the time of interpretation The CT scanner at [facility] is accredited by the [employer] and the scans are performed using protocols designed to limit radiation exposure to as low as reasonably achievable to attain images of sufficient resolution adequate for diagnostic evaluation.
[2016-05-26] MEDS: oxyCODONE 15mg IR tab ORAL PRN ×2 (12:43→22:39)
--- NOTE | 2016-05-26 13:16 | History & Physical ---
History and Physical History & Physicial The patient is a 50 yo Latin male with HIV s/p ROHAN infection with chronic anasarca due to a ? scarred mass in the mesentery. He has a two day history of painless melena and some bright blood. Has been on HIV meds Genvoya and undetectable viral load. Also on TPN at home due to hypoalbuminemia and nuitritional deficiencies. PMH remarkable for HIV/AIDS with ROHAN and mesenteric mass. Also recurrent bouts of abdominal pain with possible chronic cholecystitits. No prior hx of GI bleed. Had recent bacterial pneumonia with pleurisy. Meds; Genvoya, oxycodone 15 mg, Indocin? 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 Abdomen soft, non-tender. Lungs: clear Hear :S1 S2 nl without murmur or gallop HEENT WNL, Neuro WNL. Alert, oriented. Assessment: GI bleed ? location HIV/AIDS s/p ROHAN Mesenteric mass Plan: GI consult with Dr. Macario, identify source/site of bleeding, transfuse, r/o coagulopathy, nuitritional supplementation ELINA Kohli MD May 26, 2016 13:16
--- NOTE | 2016-05-26 15:19 | Procedure Note ---
DATE OF PROCEDURE: 05/26/2016 PROCEDURE: Colonoscopy. SURGEON: Jaswant Macario M.D. ANESTHESIA: Per WILDLIFE BIOLOGIST, Emelia Gallegos. INSTRUMENT: Olympus adult flexible upper endoscope and colonoscope. INDICATION: GI bleeding. REASON FOR PROCEDURE: The procedure, risks, benefits, and possible consequences, including hemorrhage, aspiration, perforation and infection, and alternative treatments, were explained to the patient/legal guardian by Dr. Jaswant Macario and the patient/legal guardian understood and accepted these risks. DESCRIPTION OF PROCEDURE: After informed consent was obtained and the patient was adequately sedated, first rectal exam was performed, which was normal. Then, the scope was advanced from the rectum into the cecum, and then subsequently into terminal ileum. Quality of prep was good. The patient more in the right colon, to the cecum, there was some clots seen in the cecum intubated terminal ileum, there was also some blood in the terminal ileum. This suggested most likely a small bowel bleed. There is no lesion in the colon to explain the bleeding. There is no diverticula. There is no mass. There is no any ulceration or anything to explain the bleed in the colon, so most probably the patient's bleeding from the small intestine. At this time, the scope was slowly retrieved. Retroflexion of the rectum was performed and then procedure was terminated. SUMMARY OF FINDINGS: Active bleeding mostly from the small intestine, we seen blood clot in the colon and also in the terminal ileum. PLAN: We will recommend to do capsule endoscopy today, follow up with CT angiogram, and transfuse 4 units of packed RBC given the patient's hemoglobin is 4. Consider transferring to [facility] if we cannot find the source, so we cannot control his bleeding. I want to thank, Dr. Mendez, for this kind referral. Jaswant Macario M.D. DR: MARINA JOB#: [id number] CC: Patrick Mendez M.D.; Fax#: [phone]
[2016-05-26] MEDS: GENVOYA ORAL SCH (21:00)
[2016-05-27] VITALS (7 sets, daily range): BP systolic 111–138; BP diastolic 53–84
[2016-05-27 08:02] LABS: BASOPHILS % (AUTO) 0.6 % (0.0-2.0); EOSINOPHILS % (AUTO) 0.9 % (0.0-3.0); LYMPHOCYTES % (AUTO) 10.4 % (20.0-45.0); MEAN CORPUSCULAR HEMOGLOBIN 29.9 PG (27.0-31.0); MEAN CORPUSCULAR HGB CONC 33.5 G/DL (32.0-36.0); MEAN CORPUSCULAR VOLUME 89 FL (80-99); MEAN PLATELET VOLUME 7.2 FL (6.5-10.1); MONOCYTES % (AUTO) 8.8 % (1.0-10.0); NEUTROPHILS % (AUTO) 79.3 % (45.0-75.0); PLATELET COUNT 176 K/UL (150-450); RED CELL DISTRIBUTION WIDTH 14.4 % (11.6-14.8); WHITE BLOOD COUNT 11.7 K/UL (4.8-10.8)
[2016-05-27 08:17] LABS: ANION GAP 10 (5-15); CALCIUM 6.8 mg/dL (8.6-10.2); CARBON DIOXIDE 25 mEQ/L (20-30); CHLORIDE 98 mEQ/L (98-107); CREATININE 0.8 mg/dL (0.7-1.2); GLOMERULAR FILTRATION RATE > 60 mL/min (>60); HEMOLYSIS 5; POTASSIUM 3.7 mEQ/L (3.4-4.9); SODIUM 133 mEQ/L (135-145)
[2016-05-27] MEDS: Pantoprazole 80 MG in NS 250 ML IV SCH ×2 (08:37→18:12)
[2016-05-27] MEDS: Dicyclomine HCl 10mg/5ml oral soln ORAL SCH ×4 (08:38→21:57)
[2016-05-27] MEDS ORDERED: Tubing Blood Filter IV ONE (09:48)
[2016-05-27] MEDS ORDERED: NS 275ml ONE (09:48)
--- NOTE | 2016-05-27 11:47 | GI Progress Note ---
Assessment/Plan Problems: (1) Small bowel bleed requiring more than 4 units of blood in 24 hours, ICU, or surgery ICD Codes: K92.2 - Gastrointestinal hemorrhage, unspecified SNOMED: 13390629, 01122697 (2) Lower GI bleed ICD Codes: K92.2 - Gastrointestinal hemorrhage, unspecified SNOMED: 82601185 (3) Black stool ICD Codes: K92.1 - Melena SNOMED: 52124386, 882078589 (4) Protein malnutrition ICD Codes: E46 - Unspecified protein-calorie malnutrition SNOMED: 252466340 (5) Anemia ICD Codes: D64.9 - Anemia, unspecified SNOMED: 315487411 Qualifiers: Qualified Codes: D64.9 - Anemia, unspecified Status: unchanged Status Narrative Discussed with Dr. Macario. Assessment/Plan SUMMARY OF FINDINGS: Active bleeding mostly from the small intestine, we seen blood clot in the colon and also in the terminal ileum. APCT reviewed >> On the delayed phase images, there is contrast within the distal small bowel and the colon, indicative of active GI bleeding, see full report. H. Pylori negative pt on transfer list to [facility] fu Small bowel capsule endoscopy monitor H&H, transfuse prn s/p 4 units given yesterday cont ppi gtt ok for CLD fu labs Subjective Gastrointestinal/Abdominal: Reports: abdominal pain Subjective denies any blood in stool today Objective Last 24 Hour Vital Signs Date Time Temp Pulse Resp B/P Pulse Ox O2 Delivery O2 Flow Rate FiO2 05/27/16 11:17 98.1 70 18 123/53 98 Room Air 05/27/16 07:53 97.9 91 19 132/84 99 Room Air 05/27/16 04:15 98.1 75 20 123/68 99 Room Air 05/27/16 03:55 65 05/27/16 00:16 98.4 78 20 111/68 97 Room Air 05/27/16 00:10 98.0 77 20 118/66 97 Room Air 05/26/16 23:48 77 05/26/16 21:27 89 05/26/16 20:45 98.1 80 20 113/66 99 Room Air 05/26/16 20:06 98.0 89 20 150/88 98 Room Air 05/26/16 16:00 86 05/26/16 16:00 98.0 89 19 131/74 100 Room Air 05/26/16 12:00 99.5 90 20 154/55 100 Room Air 05/26/16 12:00 86 Intake and Output 05/26/16 05/27/16 19:00 07:00 Intake Total 690 ml 200 ml Balance 690 ml 200 ml Intake Oral 440 ml IV Total 250 ml 200 ml # Voids 3 2 # Bowel Movements 1 Laboratory Tests Test 05/27/16 07:05 White Blood Count 11.7 K/UL (4.8-10.8) H Red Blood Count 2.80 M/UL (4.70-6.10) L Hemoglobin 8.4 G/DL (14.2-18.0) #L Hematocrit 25.1 % (42.0-52.0) #L Mean Corpuscular Volume 89 FL (80-99) Mean Corpuscular Hemoglobin 29.9 PG (27.0-31.0) Mean Corpuscular Hemoglobin Concent 33.5 G/DL (32.0-36.0) Red Cell Distribution Width 14.4 % (11.6-14.8) Platelet Count 176 K/UL (150-450) Mean Platelet Volume 7.2 FL (6.5-10.1) Neutrophils (%) (Auto) 79.3 % (45.0-75.0) H Lymphocytes (%) (Auto) 10.4 % (20.0-45.0) L Monocytes (%) (Auto) 8.8 % (1.0-10.0) Eosinophils (%) (Auto) 0.9 % (0.0-3.0) Basophils (%) (Auto) 0.6 % (0.0-2.0) Sodium Level 133 mEQ/L (135-145) L Potassium Level 3.7 mEQ/L (3.4-4.9) Chloride Level 98 mEQ/L (98-107) Carbon Dioxide Level 25 mEQ/L (20-30) Anion Gap 10 (5-15) Blood Urea Nitrogen 21 mg/dL (7-23) Creatinine 0.8 mg/dL (0.7-1.2) Estimat Glomerular Filtration Rate > 60 mL/min (>60) Glucose Level 100 mg/dL (74-106) Calcium Level 6.8 mg/dL (8.6-10.2) L Height (Feet): 5 Height (Inches): 6.00 Weight (Pounds): 158 General Appearance: no apparent distress, alert Cardiovascular: normal rate Respiratory/Chest: no respiratory distress Abdominal Exam: soft Objective DATE OF PROCEDURE: 05/26/2016 PROCEDURE: Colonoscopy. SURGEON: Jaswant Macario M.D. INDICATION: GI bleeding. SUMMARY OF FINDINGS: Active bleeding mostly from the small intestine, we seen blood clot in the colon and also in the terminal ileum. PLAN: We will recommend to do capsule endoscopy today, follow up with CT angiogram, and transfuse 4 units of packed RBC given the patient's hemoglobin is 4. Consider transferring to [facility] if we cannot find the source, so we cannot control his bleeding. Gloria Patrick N.P. May 27, 2016 11:47
--- NOTE | 2016-05-27 11:50 | GI Progress Note ---
Assessment/Plan Problems: (1) Small bowel bleed requiring more than 4 units of blood in 24 hours, ICU, or surgery ICD Codes: K92.2 - Gastrointestinal hemorrhage, unspecified SNOMED: 77594123, 26163130 (2) Lower GI bleed ICD Codes: K92.2 - Gastrointestinal hemorrhage, unspecified SNOMED: 53266302 (3) Black stool ICD Codes: K92.1 - Melena SNOMED: 29396058, 159261415 (4) Protein malnutrition ICD Codes: E46 - Unspecified protein-calorie malnutrition SNOMED: 138963127 (5) Anemia ICD Codes: D64.9 - Anemia, unspecified SNOMED: 445792330 Qualifiers: Qualified Codes: D64.9 - Anemia, unspecified Status: unchanged Status Narrative Discussed with Dr. Macario. Assessment/Plan SUMMARY OF FINDINGS: Active bleeding mostly from the small intestine, we seen blood clot in the colon and also in the terminal ileum. APCT reviewed >> On the delayed phase images, there is contrast within the distal small bowel and the colon, indicative of active GI bleeding, see full report. pt on transfer list to [facility] fu Small bowel capsule endoscopy monitor H&H, transfuse prn s/p 4 units given yesterday cont ppi gtt CLD okay fu labs Objective Last 24 Hour Vital Signs Date Time Temp Pulse Resp B/P Pulse Ox O2 Delivery O2 Flow Rate FiO2 05/27/16 11:17 98.1 70 18 123/53 98 Room Air 05/27/16 07:53 97.9 91 19 132/84 99 Room Air 05/27/16 04:15 98.1 75 20 123/68 99 Room Air 05/27/16 03:55 65 05/27/16 00:16 98.4 78 20 111/68 97 Room Air 05/27/16 00:10 98.0 77 20 118/66 97 Room Air 05/26/16 23:48 77 05/26/16 21:27 89 05/26/16 20:45 98.1 80 20 113/66 99 Room Air 05/26/16 20:06 98.0 89 20 150/88 98 Room Air 05/26/16 16:00 86 05/26/16 16:00 98.0 89 19 131/74 100 Room Air 05/26/16 12:00 99.5 90 20 154/55 100 Room Air 05/26/16 12:00 86 Intake and Output 05/26/16 05/27/16 19:00 07:00 Intake Total 690 ml 200 ml Balance 690 ml 200 ml Intake Oral 440 ml IV Total 250 ml 200 ml # Voids 3 2 # Bowel Movements 1 Laboratory Tests Test 05/27/16 07:05 White Blood Count 11.7 K/UL (4.8-10.8) H Red Blood Count 2.80 M/UL (4.70-6.10) L Hemoglobin 8.4 G/DL (14.2-18.0) #L Hematocrit 25.1 % (42.0-52.0) #L Mean Corpuscular Volume 89 FL (80-99) Mean Corpuscular Hemoglobin 29.9 PG (27.0-31.0) Mean Corpuscular Hemoglobin Concent 33.5 G/DL (32.0-36.0) Red Cell Distribution Width 14.4 % (11.6-14.8) Platelet Count 176 K/UL (150-450) Mean Platelet Volume 7.2 FL (6.5-10.1) Neutrophils (%) (Auto) 79.3 % (45.0-75.0) H Lymphocytes (%) (Auto) 10.4 % (20.0-45.0) L Monocytes (%) (Auto) 8.8 % (1.0-10.0) Eosinophils (%) (Auto) 0.9 % (0.0-3.0) Basophils (%) (Auto) 0.6 % (0.0-2.0) Sodium Level 133 mEQ/L (135-145) L Potassium Level 3.7 mEQ/L (3.4-4.9) Chloride Level 98 mEQ/L (98-107) Carbon Dioxide Level 25 mEQ/L (20-30) Anion Gap 10 (5-15) Blood Urea Nitrogen 21 mg/dL (7-23) Creatinine 0.8 mg/dL (0.7-1.2) Estimat Glomerular Filtration Rate > 60 mL/min (>60) Glucose Level 100 mg/dL (74-106) Calcium Level 6.8 mg/dL (8.6-10.2) L Height (Feet): 5 Height (Inches): 6.00 Weight (Pounds): 158 Objective DATE OF PROCEDURE: 05/26/2016 PROCEDURE: Colonoscopy. SURGEON: Jaswant Macario M.D. INDICATION: GI bleeding. SUMMARY OF FINDINGS: Active bleeding mostly from the small intestine, we seen blood clot in the colon and also in the terminal ileum. PLAN: We will recommend to do capsule endoscopy today, follow up with CT angiogram, and transfuse 4 units of packed RBC given the patient's hemoglobin is 4. Consider transferring to [facility] if we cannot find the source, so we cannot control his bleeding. Gloria Patrick N.P. May 27, 2016 11:50
[2016-05-27] MEDS: oxyCODONE 15mg IR tab ORAL PRN ×2 (14:46→23:40)
[2016-05-27] MEDS ORDERED: Morphine Sulfate 2mg/ml Inj IM PRN (20:00)
[2016-05-27] MEDS: GENVOYA ORAL SCH (21:57)
[2016-05-27] MEDS: cefTRIAXone 1 GM in D5W 55 ML IVPB SCH (21:57)
[2016-05-28] VITALS: BP 125/67
[2016-05-28 04:00] VITALS: BP 142/52
[2016-05-28] MEDS: Pantoprazole 80 MG in NS 250 ML IV SCH ×2 (04:19→14:25)
[2016-05-28 07:54] VITALS: BP 137/64
[2016-05-28] MEDS: Dicyclomine HCl 10mg/5ml oral soln ORAL SCH ×4 (09:14→20:40)
[2016-05-28] MEDS ORDERED: NS 275ml ONE (10:13)
[2016-05-28] MEDS ORDERED: Tubing IV Secondary IV ONE (10:13)
[2016-05-28 10:14] LABS: BASOPHILS % (AUTO) 0.6 % (0.0-2.0); EOSINOPHILS % (AUTO) 2.9 % (0.0-3.0); LYMPHOCYTES % (AUTO) 16.6 % (20.0-45.0); MEAN CORPUSCULAR HEMOGLOBIN 29.3 PG (27.0-31.0); MEAN CORPUSCULAR HGB CONC 32.7 G/DL (32.0-36.0); MEAN CORPUSCULAR VOLUME 90 FL (80-99); MEAN PLATELET VOLUME 6.9 FL (6.5-10.1); MONOCYTES % (AUTO) 9.8 % (1.0-10.0); NEUTROPHILS % (AUTO) 70.2 % (45.0-75.0); PLATELET COUNT 180 K/UL (150-450); RED BLOOD COUNT 2.77 M/UL (4.70-6.10); RED CELL DISTRIBUTION WIDTH 14.9 % (11.6-14.8); WHITE BLOOD COUNT 6.4 K/UL (4.8-10.8)
--- NOTE | 2016-05-28 11:18 | GI Progress Note ---
Assessment/Plan Problems: (1) Small bowel bleed requiring more than 4 units of blood in 24 hours, ICU, or surgery ICD Codes: K92.2 - Gastrointestinal hemorrhage, unspecified SNOMED: 27893563, 26839308 (2) Lower GI bleed ICD Codes: K92.2 - Gastrointestinal hemorrhage, unspecified SNOMED: 67391771 (3) Black stool ICD Codes: K92.1 - Melena SNOMED: 06887666, 502317215 (4) Protein malnutrition ICD Codes: E46 - Unspecified protein-calorie malnutrition SNOMED: 346744104 (5) Anemia ICD Codes: D64.9 - Anemia, unspecified SNOMED: 227593035 Qualifiers: Qualified Codes: D64.9 - Anemia, unspecified Status: stable, unchanged Status Narrative Discussed with Dr. Macario. Assessment/Plan SUMMARY OF FINDINGS: Active bleeding mostly from the small intestine, we seen blood clot in the colon and also in the terminal ileum. APCT reviewed >> On the delayed phase images, there is contrast within the distal small bowel and the colon, indicative of active GI bleeding, see full report. H. Pylori negative pt on transfer list to [facility] fu Small bowel capsule endoscopy monitor H&H, transfuse prn >> s/p 4 units >> stable today cont ppi gtt adv to FLD today fu labs Subjective Subjective denies any blood in stool or rectal bleed for 1.5 days. Objective Last 24 Hour Vital Signs Date Time Temp Pulse Resp B/P Pulse Ox O2 Delivery O2 Flow Rate FiO2 05/28/16 07:54 98.2 71 18 137/64 98 Room Air 05/28/16 04:00 66 05/28/16 04:00 97.9 68 20 142/52 98 05/28/16 00:00 98.2 69 20 125/67 100 Room Air 2.0 05/28/16 00:00 74 05/27/16 20:00 78 05/27/16 20:00 98.2 72 20 129/59 98 Room Air 2.0 05/27/16 15:45 69 05/27/16 15:18 98.2 69 20 138/75 98 Room Air 05/27/16 11:30 75 05/27/16 11:17 98.1 70 18 123/53 98 Room Air Intake and Output 05/27/16 05/28/16 19:00 07:00 Intake Total 1295 ml 585 ml Balance 1295 ml 585 ml Intake Oral 1070 ml 240 ml IV Total 225 ml 345 ml # Voids 2 1 Laboratory Tests Test 05/28/16 09:13 White Blood Count 6.4 K/UL (4.8-10.8) Red Blood Count 2.77 M/UL (4.70-6.10) L Hemoglobin 8.1 G/DL (14.2-18.0) L Hematocrit 24.8 % (42.0-52.0) L Mean Corpuscular Volume 90 FL (80-99) Mean Corpuscular Hemoglobin 29.3 PG (27.0-31.0) Mean Corpuscular Hemoglobin Concent 32.7 G/DL (32.0-36.0) Red Cell Distribution Width 14.9 % (11.6-14.8) H Platelet Count 180 K/UL (150-450) Mean Platelet Volume 6.9 FL (6.5-10.1) Neutrophils (%) (Auto) 70.2 % (45.0-75.0) Lymphocytes (%) (Auto) 16.6 % (20.0-45.0) L Monocytes (%) (Auto) 9.8 % (1.0-10.0) Eosinophils (%) (Auto) 2.9 % (0.0-3.0) Basophils (%) (Auto) 0.6 % (0.0-2.0) Height (Feet): 5 Height (Inches): 6.00 Weight (Pounds): 158 General Appearance: no apparent distress, alert Cardiovascular: normal rate Respiratory/Chest: normal breath sounds, no respiratory distress Abdominal Exam: normal bowel sounds, non tender, soft Objective DATE OF PROCEDURE: 05/26/2016 PROCEDURE: Colonoscopy. SURGEON: Jaswant Macario M.D. INDICATION: GI bleeding. SUMMARY OF FINDINGS: Active bleeding mostly from the small intestine, we seen blood clot in the colon and also in the terminal ileum. PLAN: We will recommend to do capsule endoscopy today, follow up with CT angiogram, and transfuse 4 units of packed RBC given the patient's hemoglobin is 4. Consider transferring to [facility] if we cannot find the source, so we cannot control his bleeding. Gloria Patrick NLaurenPLauren May 28, 2016 11:18
[2016-05-28 11:23] VITALS: BP 133/65
[2016-05-28 15:25] VITALS: BP 137/74
[2016-05-28 20:00] VITALS: BP 117/55
[2016-05-28] MEDS: GENVOYA ORAL SCH (20:40)
[2016-05-28] MEDS: cefTRIAXone 1 GM in D5W 55 ML IVPB SCH (21:34)
[2016-05-28] MEDS: oxyCODONE 15mg IR tab ORAL PRN (23:04)
[2016-05-29 00:10] VITALS: BP 103/57
[2016-05-29] MEDS: Pantoprazole 80 MG in NS 250 ML IV SCH ×2 (00:19→10:15)
[2016-05-29 04:25] VITALS: BP 116/69
[2016-05-29 07:36] VITALS: BP 119/62
[2016-05-29] MEDS: Dicyclomine HCl 10mg/5ml oral soln ORAL SCH ×4 (08:03→20:56)
[2016-05-29 08:11] LABS: BASOPHILS % (AUTO) 0.5 % (0.0-2.0); EOSINOPHILS % (AUTO) 1.6 % (0.0-3.0); LYMPHOCYTES % (AUTO) 15.8 % (20.0-45.0); MEAN CORPUSCULAR HEMOGLOBIN 29.1 PG (27.0-31.0); MEAN CORPUSCULAR HGB CONC 32.6 G/DL (32.0-36.0); MEAN CORPUSCULAR VOLUME 89 FL (80-99); MEAN PLATELET VOLUME 7.2 FL (6.5-10.1); MONOCYTES % (AUTO) 7.1 % (1.0-10.0); PLATELET COUNT 219 K/UL (150-450); RED BLOOD COUNT 2.99 M/UL (4.70-6.10); RED CELL DISTRIBUTION WIDTH 14.3 % (11.6-14.8); WHITE BLOOD COUNT 7.5 K/UL (4.8-10.8)
[2016-05-29 08:48] LABS: ANION GAP 12 (5-15); CALCIUM 7.6 mg/dL (8.6-10.2); CARBON DIOXIDE 25 mEQ/L (20-30); CHLORIDE 100 mEQ/L (98-107); CREATININE 0.7 mg/dL (0.7-1.2); GLOMERULAR FILTRATION RATE > 60 mL/min (>60); HEMOLYSIS 3; POTASSIUM 3.8 mEQ/L (3.4-4.9); SODIUM 137 mEQ/L (135-145)
[2016-05-29 11:17] VITALS: BP 113/57
--- NOTE | 2016-05-29 11:40 | General Progress Note ---
Assessment/Plan Problem List: (1) Anemia ICD Codes: D64.9 - Anemia, unspecified SNOMED: 284093654 Qualifiers: Qualified Codes: D64.9 - Anemia, unspecified (2) Upper GI bleed ICD Codes: K92.2 - Gastrointestinal hemorrhage, unspecified SNOMED: 59665908 Assessment/Plan small bowel bleed stable advance diet dc IVF cbc in am cancel [facility] for now review capsule endoscopy on tuesday Subjective ROS Limited/Unobtainable: Yes Allergies: Coded Allergies: No Known Allergies (Unverified , 09/12/14) Subjective no recurrent bleed Objective Last 24 Hour Vital Signs Date Time Temp Pulse Resp B/P Pulse Ox O2 Delivery O2 Flow Rate FiO2 05/29/16 11:17 99.1 74 18 113/57 99 Room Air 05/29/16 07:36 98.6 77 18 119/62 98 Room Air 05/29/16 04:25 98.2 75 20 116/69 100 Room Air 05/29/16 04:00 64 05/29/16 00:10 99.7 82 20 103/57 97 Room Air 05/29/16 00:00 82 05/28/16 20:00 79 05/28/16 20:00 100.2 77 20 117/55 99 Room Air 05/28/16 16:00 77 05/28/16 15:25 99.3 84 18 137/74 94 Room Air 05/28/16 12:00 80 Intake and Output 05/28/16 05/29/16 19:00 07:00 Intake Total 1720 ml 330 ml Output Total 400 ml Balance 1720 ml -70 ml Intake Oral 1420 ml IV Total 300 ml 330 ml Output Urine Total 400 ml # Voids 4 2 Laboratory Tests 05/29/16 06:35: White Blood Count 7.5, Red Blood Count 2.99L, Hemoglobin 8.7L, Hematocrit 26.8L , Mean Corpuscular Volume 89, Mean Corpuscular Hemoglobin 29.1, Mean Corpuscular Hemoglobin Concent 32.6, Red Cell Distribution Width 14.3, Platelet Count 219, Mean Platelet Volume 7.2, Neutrophils (%) (Auto) 75.0, Lymphocytes (% ) (Auto) 15.8L, Monocytes (%) (Auto) 7.1, Eosinophils (%) (Auto) 1.6, Basophils (%) (Auto) 0.5, Sodium Level 137, Potassium Level 3.8, Chloride Level 100, Carbon Dioxide Level 25, Anion Gap 12, Blood Urea Nitrogen 7, Creatinine 0.7, Estimat Glomerular Filtration Rate > 60, Glucose Level 83, Calcium Level 7.6L Height (Feet): 5 Height (Inches): 6.00 Weight (Pounds): 158 General Appearance: alert EENT: normal ENT inspection Neck: supple Cardiovascular: normal rate Respiratory/Chest: lungs clear Abdomen: normal bowel sounds, non tender, soft Extremities: non-tender JET ROLAND May 29, 2016 11:40
[2016-05-29 15:25] VITALS: BP 135/65
[2016-05-29 20:00] VITALS: BP 133/63
[2016-05-29] MEDS: GENVOYA ORAL SCH (20:56)
[2016-05-29] MEDS: oxyCODONE 15mg IR tab ORAL PRN (23:07)
[2016-05-30] VITALS: BP 128/60
[2016-05-30 04:00] VITALS: BP 129/66
[2016-05-30 07:57] VITALS: BP 130/89
[2016-05-30] MEDS: Dicyclomine HCl 10mg/5ml oral soln ORAL SCH ×4 (08:13→20:42)
[2016-05-30 08:39] LABS: BASOPHILS % (AUTO) 0.6 % (0.0-2.0); EOSINOPHILS % (AUTO) 2.3 % (0.0-3.0); LYMPHOCYTES % (AUTO) 21.4 % (20.0-45.0); MEAN CORPUSCULAR HEMOGLOBIN 28.6 PG (27.0-31.0); MEAN CORPUSCULAR HGB CONC 32.3 G/DL (32.0-36.0); MEAN CORPUSCULAR VOLUME 88 FL (80-99); MONOCYTES % (AUTO) 9.4 % (1.0-10.0); NEUTROPHILS % (AUTO) 66.4 % (45.0-75.0); PLATELET COUNT 287 K/UL (150-450); RED BLOOD COUNT 3.35 M/UL (4.70-6.10); RED CELL DISTRIBUTION WIDTH 14.4 % (11.6-14.8); WHITE BLOOD COUNT 8.6 K/UL (4.8-10.8)
[2016-05-30 08:47] LABS: ANION GAP 14 (5-15); CALCIUM 7.8 mg/dL (8.6-10.2); CARBON DIOXIDE 23 mEQ/L (20-30); CHLORIDE 100 mEQ/L (98-107); CREATININE 0.8 mg/dL (0.7-1.2); GLOMERULAR FILTRATION RATE > 60 mL/min (>60); HEMOLYSIS 6; POTASSIUM 3.8 mEQ/L (3.4-4.9); SODIUM 137 mEQ/L (135-145)
--- NOTE | 2016-05-30 10:24 | General Progress Note ---
Assessment/Plan Problem List: (1) Anemia ICD Codes: D64.9 - Anemia, unspecified SNOMED: 317225114 Qualifiers: Qualified Codes: D64.9 - Anemia, unspecified (2) Upper GI bleed ICD Codes: K92.2 - Gastrointestinal hemorrhage, unspecified SNOMED: 54306251 Assessment/Plan small bowel bleed stable cbc in am cancel [facility] for now review capsule endoscopy on tuesday possible dc planning for tomorrow Subjective ROS Limited/Unobtainable: Yes Allergies: Coded Allergies: No Known Allergies (Unverified , 09/12/14) Subjective no recurrent bleed Objective Last 24 Hour Vital Signs Date Time Temp Pulse Resp B/P Pulse Ox O2 Delivery O2 Flow Rate FiO2 05/30/16 08:00 130 05/30/16 07:57 98.2 99 20 130/89 98 Room Air 05/30/16 04:00 98.1 70 19 129/66 99 Room Air 2.0 05/30/16 04:00 63 05/30/16 00:00 98.1 85 19 128/60 99 Room Air 2.0 05/30/16 00:00 102 05/29/16 20:00 81 05/29/16 20:00 98.1 18 19 133/63 99 Room Air 2.0 05/29/16 16:00 75 05/29/16 15:25 97.7 76 19 135/65 05/29/16 12:00 69 05/29/16 11:17 99.1 74 18 113/57 99 Room Air Intake and Output 05/29/16 05/30/16 19:00 07:00 Intake Total 865 ml 240 ml Balance 865 ml 240 ml Intake Oral 840 ml 240 ml IV Total 25 ml # Voids 3 Laboratory Tests 05/30/16 07:32: White Blood Count 8.6, Red Blood Count 3.35L, Hemoglobin 9.6L, Hematocrit 29.6L , Mean Corpuscular Volume 88, Mean Corpuscular Hemoglobin 28.6, Mean Corpuscular Hemoglobin Concent 32.3, Red Cell Distribution Width 14.4, Platelet Count 287, Mean Platelet Volume 7.0, Neutrophils (%) (Auto) 66.4, Lymphocytes (% ) (Auto) 21.4, Monocytes (%) (Auto) 9.4, Eosinophils (%) (Auto) 2.3, Basophils ( %) (Auto) 0.6, Sodium Level 137, Potassium Level 3.8, Chloride Level 100, Carbon Dioxide Level 23, Anion Gap 14, Blood Urea Nitrogen 9, Creatinine 0.8, Estimat Glomerular Filtration Rate > 60, Glucose Level 90, Calcium Level 7.8L Height (Feet): 5 Height (Inches): 6.00 Weight (Pounds): 158 General Appearance: alert EENT: normal ENT inspection Neck: supple Cardiovascular: normal rate Respiratory/Chest: lungs clear Abdomen: normal bowel sounds, non tender, soft Extremities: non-tender JET ROLAND May 30, 2016 10:24
[2016-05-30 11:27] VITALS: BP 118/62
[2016-05-30] MEDS: oxyCODONE 15mg IR tab ORAL PRN ×2 (15:07→23:07)
[2016-05-30 15:26] VITALS: BP 120/72
[2016-05-30 20:00] VITALS: BP 126/66
[2016-05-30] MEDS: GENVOYA ORAL SCH (20:43)
[2016-05-31 00:10] VITALS: BP 121/57
[2016-05-31 04:06] VITALS: BP 111/49
[2016-05-31 05:40] LABS: BASOPHILS % (AUTO) 1.1 % (0.0-2.0); EOSINOPHILS % (AUTO) 3.4 % (0.0-3.0); LYMPHOCYTES % (AUTO) 26.6 % (20.0-45.0); MEAN CORPUSCULAR HEMOGLOBIN 28.9 PG (27.0-31.0); MEAN CORPUSCULAR HGB CONC 32.9 G/DL (32.0-36.0); MEAN CORPUSCULAR VOLUME 88 FL (80-99); MEAN PLATELET VOLUME 7.1 FL (6.5-10.1); MONOCYTES % (AUTO) 12.7 % (1.0-10.0); NEUTROPHILS % (AUTO) 56.3 % (45.0-75.0); PLATELET COUNT 335 K/UL (150-450); RED BLOOD COUNT 3.17 M/UL (4.70-6.10); RED CELL DISTRIBUTION WIDTH 14.5 % (11.6-14.8); WHITE BLOOD COUNT 6.8 K/UL (4.8-10.8)
[2016-05-31 08:00] VITALS: BP 143/73
[2016-05-31] MEDS: Dicyclomine HCl 10mg/5ml oral soln ORAL SCH ×2 (08:10→13:19)
--- NOTE | 2016-05-31 10:27 | Discharge Instructions ---
Discharge Instructions Discharge Instructions Services at Discharge: outpatient therapy Diet: regular Resume Normal Activity?: Yes Pneumonia Vaccine: vaccine not indicated Special Instructions needs appoitment for replacement of pICC line later this [facility] For Congestive Heart Failure Reminder Report to your physician any weight gain of 5 pounds or more in one week. ELINA MOORE May 31, 2016 10:27
--- NOTE | 2016-05-31 10:28 | GI Progress Note ---
Assessment/Plan Problems: (1) Small bowel bleed requiring more than 4 units of blood in 24 hours, ICU, or surgery ICD Codes: K92.2 - Gastrointestinal hemorrhage, unspecified SNOMED: 68458771, 70983049 (2) Lower GI bleed ICD Codes: K92.2 - Gastrointestinal hemorrhage, unspecified SNOMED: 17534210 (3) Black stool ICD Codes: K92.1 - Melena SNOMED: 76427465, 942911007 (4) Protein malnutrition ICD Codes: E46 - Unspecified protein-calorie malnutrition SNOMED: 997631141 (5) Anemia ICD Codes: D64.9 - Anemia, unspecified SNOMED: 664873515 Qualifiers: Qualified Codes: D64.9 - Anemia, unspecified Status: stable Status Narrative Discussed with Dr. Macario. Assessment/Plan SUMMARY OF FINDINGS: Active bleeding mostly from the small intestine, we seen blood clot in the colon and also in the terminal ileum. APCT reviewed >> On the delayed phase images, there is contrast within the distal small bowel and the colon, indicative of active GI bleeding, see full report. H. Pylori negative ok for DC per GI standpoint small bowel bleed stable H&H cancel [facility] review capsule endoscopy on tuesday fu with PCP instructed patient to return to ED if bleeding persists Subjective Subjective denies any blood in stool over weekend. tolerating diet Objective Last 24 Hour Vital Signs Date Time Temp Pulse Resp B/P Pulse Ox O2 Delivery O2 Flow Rate FiO2 05/31/16 08:00 86 05/31/16 08:00 98.8 97 20 143/73 95 Room Air 05/31/16 04:06 98.4 70 20 111/49 94 Room Air 05/31/16 04:00 72 05/31/16 00:10 98.8 72 20 121/57 97 Room Air 05/31/16 00:00 75 05/30/16 20:00 98.7 79 21 126/66 94 Room Air 05/30/16 20:00 96 05/30/16 16:00 87 05/30/16 15:26 98.1 83 20 120/72 100 Room Air 05/30/16 12:00 79 05/30/16 11:27 99.0 78 19 118/62 100 Room Air Intake and Output 05/30/16 05/31/16 19:00 07:00 Intake Total 900 ml Balance 900 ml Intake Oral 900 ml # Voids 3 2 # Bowel Movements 1 Laboratory Tests Test 05/30/16 13:20 05/31/16 05:05 Stool Occult Blood Positive (NEGATIVE) White Blood Count 6.8 K/UL (4.8-10.8) Red Blood Count 3.17 M/UL (4.70-6.10) L Hemoglobin 9.2 G/DL (14.2-18.0) L Hematocrit 27.8 % (42.0-52.0) L Mean Corpuscular Volume 88 FL (80-99) Mean Corpuscular Hemoglobin 28.9 PG (27.0-31.0) Mean Corpuscular Hemoglobin Concent 32.9 G/DL (32.0-36.0) Red Cell Distribution Width 14.5 % (11.6-14.8) Platelet Count 335 K/UL (150-450) Mean Platelet Volume 7.1 FL (6.5-10.1) Neutrophils (%) (Auto) 56.3 % (45.0-75.0) Lymphocytes (%) (Auto) 26.6 % (20.0-45.0) Monocytes (%) (Auto) 12.7 % (1.0-10.0) H Eosinophils (%) (Auto) 3.4 % (0.0-3.0) H Basophils (%) (Auto) 1.1 % (0.0-2.0) Height (Feet): 5 Height (Inches): 6.00 Weight (Pounds): 158 General Appearance: no apparent distress, alert Cardiovascular: normal rate Respiratory/Chest: normal breath sounds, no respiratory distress Abdominal Exam: normal bowel sounds, non tender, soft Extremities: normal range of motion Objective DATE OF PROCEDURE: 05/26/2016 PROCEDURE: Colonoscopy. SURGEON: Jaswant Macario M.D. INDICATION: GI bleeding. SUMMARY OF FINDINGS: Active bleeding mostly from the small intestine, we seen blood clot in the colon and also in the terminal ileum. PLAN: We will recommend to do capsule endoscopy today, follow up with CT angiogram, and transfuse 4 units of packed RBC given the patient's hemoglobin is 4. Consider transferring to [facility] if we cannot find the source, so we cannot control his bleeding. Gloria Patrick N.P. May 31, 2016 10:28
[2016-05-31 12:00] VITALS: BP 143/76
--- NOTE | 2016-05-31 14:29 | Diagnostic Imaging Report ---
APPROVED REPORT CPT Code: 26146 Present Symptoms Upper Extremity Pain: Right RIGHT UPPER EXTREMITY: Venous imaging reveals patency of the internal jugular, subclavian, axillary and brachial veins. The cephalic vein are also patent. Doppler indicates normal spontaneous flow within these venous segments.The basilic vein is thrombosed.
--- NOTE | 2016-05-31 16:31 | Diagnostic Imaging Report ---
Indication: Status post PICC removal Technique: One view of the chest Comparison: 05/24/2016 Findings: Previously demonstrated left arm PICC is no longer evident. Some scarring is seen in the left midlung. Some atelectasis is seen in the right lung base. Lungs and pleural spaces are otherwise clear. Heart size is upper limits normal. Impression: No acute process
[2016-06-01] MEDS ORDERED: PROTONIX40 M2 GT (14:32)
--- NOTE | 2016-06-01 14:39 | Discharge Summary ---
Discharge Summary Hospital Course Date of Admission May 24, 2016 at 15:15 Date of Discharge May 31, 2016 at 15:45 Admitting Diagnosis lower GI bleed, ANEMIA HPI Jerrell Devries is a 50 year old male who was admitted on May 24, 2016 at 15:15 for Lower Gastrointestinal Bleed/Anemia Hospital Course dc summary #[id number] Discharge Medications New Medications: Pantoprazole Sodium (Protonix) 40 Mg Granpkt.dr 40 MG GT DAILY, #30 PKT Continued Medications: Alprazolam* (Xanax*) 0.25 Mg Tablet 0.25 MG ORAL DAILY, TAB Bupropion Hcl* (Wellbutrin Xl*) 150 Mg Tab.er.24h 150 MG ORAL DAILY for 30 Days, TAB 0 Refills Calcium Carbonate/Vitamin D3 (Calcium 500 mg Chewable Tablet) 1 Each Tab.chew 1 EACH PO DAILY, TAB Elviteg/Jessica/Emtric/Tenofo Ala (Genvoya Tablet) 1 Each Tablet 1 EACH PO DAILY, TAB Furosemide* (Lasix*) 40 Mg Tablet 20 MG ORAL DAILY, TAB Lipase/Protease/Amylase (Creon Dr 24,000 Units Capsule) 1 Each Capsule.dr 1 EACH PO TID, CAP Loperamide HCl (Loperamide) 2 Mg Cap 2 MG ORAL QID, #20 CAP 0 Refills Loratadine (Claritin) 10 Mg Capsule 10 MG ORAL DAILY, CAP Naloxegol Oxalate (Movantik) 25 Mg Tablet 25 MG PO DAILY, TAB Oxycodone Hcl* (Oxycodone Hcl*) 15 Mg Tablet 15 MG ORAL Q12HR PRN for For Pain, #30 TAB 0 Refills Spironolactone* (Aldactone*) 50 Mg Tablet 100 MG ORAL DAILY, TAB Discharge Condition Upon Discharge: stable Discharge Disposition Patient was discharged to Home () Discharge Diagnoses: Discharge Instructions Discharge Instructions Services Upon Discharge: outpatient therapy Pneumonia Vaccine: vaccine not indicated Special Instructions I have been assigned to complete a D/C Summary on this account. I was not involved in the patient management Zayda Kearns NP (Vanchtein) Jun 01, 2016 14:39
--- NOTE | 2016-06-02 03:08 | Discharge Summary 2 SIG ---
DATE OF ADMISSION: 05/24/2016 DATE OF DISCHARGE: 05/31/2016 REASON FOR ADMISSION: This is a 50-year-old male, who came to emergency room complaining of blood in his stool for the last three days. He noted dark stool with blood in the toilet. He denied any abdominal pain. Denied nausea, vomiting, or diarrhea. The patient reported feeling weak. The patient reported he was taking indomethacin for long time for vague abdominal pain. The patient denied taking any blood thinner. The patient has a history of HIV, on HAART therapy. The patient is compliant with HAART therapy medication. He denies shortness of breath. Denies cough. Denies fever or chills. No chest pain. Workup in the emergency room revealed mild leukocytosis. The patient was tachycardic with 122, tachypneic, with respiration rate of 28. No fever. Mild leukocytosis with white blood count 11.9, and anemic with hemoglobin 6.4 and hematocrit 19.7. EKG revealed normal sinus rate. No acute changes. Electrolytes were stable. Troponin was negative. Lactic acid was 2.4. Chest x-ray revealed atelectasis, but no acute infiltrate. The patient was started on IV fluids, given empiric antibiotics, given blood transfusion, and transferred to telemetry floor for further management. ADMITTING DIAGNOSES: 1. Lower gastrointestinal bleeding. 2. Anemia. 3. Human immunodeficiency virus status. HOSPITAL STAY: The patient was admitted. The patient was on IV antibiotics. GI consult was requested. GI scheduled the patient for EGD and colonoscopy. EGD was done on 05/25/2016 and revealed gastritis. Colonoscopy was done on 05/26/2016 and revealed hemorrhoids. On 05/26/2016, hemoglobin down to 4.9, hematocrit 14.9. At that time, CT of the abdomen and pelvis was done, which revealed evidence of acute GI bleeding, which was evident on delayed phase images. There was contrast within the distal small bowel and the colon indicative of active GI bleeding. Possibly due to the timing issue, the exact site was not demonstrating. Given the involvement of the distal ileum, most likely distal ileal source. However, there was also possibility of primary colonic bleed with contrast reflux into the terminal ileus. The patient was on the Protonix drip. Hemoglobin and hematocrit were closely monitored to keep hemoglobin above 7. The patient required total of 4 units of packed red blood cells. No blood thinners. No nonsteroidal anti-inflammatory drugs. The patient was initially placed on the transfer list to [facility] for small bowel capsule endoscopy. While in the hospital, the patient was on the clear liquid diet, which he was able to tolerate and then he was advanced to full liquid diet. Hemoglobin and hematocrit remained stable. So, GI cleared the patient for discharge and so he was transferred since hemoglobin and hematocrit remained stable. The capsule endoscopy to be reviewed on Tuesday. The patient to follow up with the primary medical doctor. The patient was instructed to return to the emergency department if bleeding recurs. The patient was stable for discharge. DISCHARGE DIAGNOSES: 1. Lower gastrointestinal bleeding. 2. Anemia, status post 4 units of packed red blood cell transfusion. 3. Small bowel bleeding. 4. Human immunodeficiency virus status. 5. Status post esophagogastroduodenoscopy. 6. Gastritis. 7. Status post colonoscopy. 8. Hemorrhoids. DISCHARGE MEDICATIONS: See medication reconciliation list. DISCHARGE INSTRUCTIONS: The patient to follow up with the primary care provider. Patrick Mendez M.D. I have been assigned to dictate discharge summary on this account and I was not involved in the patient's management. Zayda browerjen NTim DR: DEMETRI JOB#: [id number] CC:
== END 2016-05-31 15:45 | disposition home or self-care (01) | DRG 377 ==
LOC: EMR 14:40 → EDBEDREQ 14:44 → 2E 15:15 → EDBEDREQ 05-25 06:00 → 2E 05-25 06:52
PROC: 30233N1 Transfusion of Nonautologous Red Blood Cells into Peripheral Vein, Percutaneous Approach (ICD-10-PCS; principal; 2016-05-24)
PROC: 0DB68ZX Excision of Stomach, Via Natural or Artificial Opening Endoscopic, Diagnostic (ICD-10-PCS; 2016-05-25)
PROC: 0DJD8ZZ Inspection of Lower Intestinal Tract, Via Natural or Artificial Opening Endoscopic (ICD-10-PCS; 2016-05-26)
DX: K92.2 Gastrointestinal hemorrhage, unspecified (principal); B20 Human immunodeficiency virus [HIV] disease; E46 Unspecified protein-calorie malnutrition; D50.0 Iron deficiency anemia secondary to blood loss (chronic); K29.70 Gastritis, unspecified, without bleeding; K64.9 Unspecified hemorrhoids
CPT/HCPCS: 36415; 71010; 74175; 80048; 80053; 81003; 82270; 82550; 82553; 83605; 83690; 84484; 85007; 85025; 85610; 85730; 86850; 86900; 86901; 86920; 87040; 87070; 87081; 90732; 93005; 93971; 94003; 94150; J2405

== ENCOUNTER → 2016-06-03 | Outpatient (CLI) | payer OTHER, MEDICAID ==
--- NOTE | 2016-05-31 20:18 | Procedure Note ---
SURGEON: Jaswant Macario M.D. PROCEDURE: Capsule endoscopy. INDICATION: Gastrointestinal bleeding. Procedure was done in the hospital setting, reason for massive gastrointestinal bleeding with negative endoscopy and colonoscopy on the same day. FINDINGS: The capsule spent most of the time in the stomach, actually 4 hours and 32 minutes in the stomach. The rest of the time was spent in the small intestine. At the end of the study, the capsule was split in the small intestine and did not enter the colon. The patient had evidence of severe edema in the proximal small bowel and actually throughout the small intestine. At the end of the capsule, it was in the, I am not sure maybe terminal ileum or at least in the ileum of the small intestine there was a lot of fresh blood seen, but we could not see obvious lesions. The blood was obscuring the view and we could not see any ulcers, any mass, or any other obvious pathology to explain his bleeding, but as I mentioned above, he had significant amount of edema throughout the small intestine. REASON FOR PROCEDURE: The procedure, risks, benefits, and possible consequences, including hemorrhage, aspiration, perforation and infection, and alternative treatments, were explained to the patient/legal guardian by Dr. Jaswant Macario and the patient/legal guardian understood and accepted these risks. SUMMARY FINDINGS: Active bleeding in the small intestine most likely in the ileum area with evidence of bowel edema. RECOMMENDATIONS: The patient to be observed. Angiogram has been ordered. A CT angio has been ordered to localize the bleeding. If the patient has persistent edema may need to be transferred to [facility] for angiogram and embolization or double balloon study. I want to thank, Dr. Mendez, for this kind referral. Jaswant Macario M.D. DR: LISA JOB#: [id number] CC: Patrick Mendez M.D.; Fax#: [phone]
[~2016-06-03] MED LIST changes: +PROTONIX40 M2 GT
--- NOTE | 2016-06-03 12:15 | Pre-Procedure Note/Attestation ---
Pre-Procedure Note/Attestation Complete Prior to Procedure Planned Procedure: left Procedure Narrative: PICC Indications for Procedure Pre-Operative Diagnosis: poor venous access Attestation I attest that I discussed the nature of the procedure; its benefits; risks and complications; and alternatives (and the risks and benefits of such alternatives ), prior to the procedure, with the patient (or the patient's legal dairy supplies sales representative). I attest that, if there was a reasonable possibility of needing a blood transfusion, the patient (or the patient's legal dairy supplies sales representative) was given the [facility] standardized written summary, pursuant to the Srinivas Decherd Blood Safety Act ([place] Health and Safety Code # 1645, as amended). I attest that I re-evaluated the patient just prior to the surgery and that there has been no change in the patient's H&P, except as documented below: JUSTIN ALTAMIRANO M.D. Jun 03, 2016 12:15
--- NOTE | 2016-06-03 16:38 | Diagnostic Imaging Report ---
Indications: Needs long-term IV access Technique: Ultrasound confirms patent compressible left basilic vein. Total sterile technique, including sterile probe cover and sterile gel, hat, mask,, sterile gown, large sterile drape, and preparation with 2% chlorhexidine utilized. Local anesthesia with 1% lidocaine. Under real-time ultrasound guidance, puncture basilic vein using 21-gauge needle, documented and archived, passage 0.018 guidewire under direct fluoroscopy, which was used to determine appropriate catheter length, exchange for 5 Spanish peel-away sheath. 5 Spanish Bard dual-lumen power PICC cut to 43 cm. It was inserted through the peel-away sheath. Peel-away sheath and guidewire removed. Catheter fixed to the skin. Both catheter ports aspirated and flushed. Patient tolerated procedure well, without immediate complication. Digital radiograph documents satisfactory catheter tip position, at the cavoatrial junction. Total fluoroscopy time 0.2 minutes. Total dose area product 4.4 dGycm2 Impression: Successful placement of left arm PICC under sonographic and fluoroscopic guidance, as described above.
== END | disposition home or self-care (01) ==
LOC: RAD 10:52 → EDSTATUS 11:00
DX: Z79.899 Other long term (current) drug therapy (principal)
CPT/HCPCS: 36569; 76937

== ENCOUNTER 2016-06-21 09:43 | Outpatient (CLI) | payer OTHER, MEDICAID ==
[2016-06-21 08:15] VITALS: BP 98/52
--- NOTE | 2016-06-22 09:13 | GI Progress Note ---
Assessment/Plan Problems: (1) Encounter for diagnostic endoscopy ICD Codes: Z01.818 - Encounter for other preprocedural examination SNOMED: 882134238, 486914372 (2) Upper GI bleed ICD Codes: K92.2 - Gastrointestinal hemorrhage, unspecified SNOMED: 92422034 (3) Small bowel bleed requiring more than 4 units of blood in 24 hours, ICU, or surgery ICD Codes: K92.2 - Gastrointestinal hemorrhage, unspecified SNOMED: 34249997, 71720055 (4) Anemia ICD Codes: D64.9 - Anemia, unspecified SNOMED: 238645754 Status: stable Status Narrative Discussed with Dr. Macario. Assessment/Plan LATE ENTRY FOR 06/21/16 SBCE today to evaluate SB bleed of unknown origin. RTC tomorrow. Subjective Gastrointestinal/Abdominal: Reports: no symptoms Objective General Appearance: no apparent distress, alert Cardiovascular: normal rate Respiratory/Chest: normal breath sounds, no respiratory distress Abdominal Exam: normal bowel sounds, non tender, soft Extremities: normal range of motion Gloria Patrick N.P. June 22, 2016 09:13
== END 2016-06-21 10:30 | disposition home or self-care (01) ==
LOC: PAN 09:43
DX: K92.2 Gastrointestinal hemorrhage, unspecified (principal); D64.9 Anemia, unspecified

== ENCOUNTER 2016-07-06 15:08 | Outpatient (CLI) | payer MEDICAID, OTHER ==
--- NOTE | 2016-07-07 12:31 | Diagnostic Imaging Report ---
APPROVED REPORT CPT Code: 76793 Present Symptoms Upper Extremity Pain: Left Upper Extremity Edema: Left Comments: LT PICC LINE PLACED JUNE 2016. LT BASILIC VEIN TO LT SUBCLAVIAN VEIN. LEFT UPPER EXTREMITY: Imaging reveals acute thrombus in the proximal to distal subclavian vein (thrombosed PICC line) through the axillary vein to the mid brachial vein. Imaging reveals patency of the internal jugular and distal brachial veins. The basilic vein (distal PICC line) is also thrombosed at the upper to mid arm level. The remaining segments of the basilic vein are within normal limits. The cephalic vein is patent and compressible. Dr. Mendez was informed of abnormal results at 16:27 hrs.
== END 2016-07-06 17:08 | disposition home or self-care (01) ==
LOC: VAS 15:08
DX: M79.602 Pain in left arm (principal); R22.32 Localized swelling, mass and lump, left upper limb
CPT/HCPCS: 93971

== ENCOUNTER 2016-08-04 09:47 | Inpatient (IN) | payer OTHER ==
[2016-08-04] VITALS (15 sets, daily range): BP systolic 94–140; BP diastolic 46–83
[~2016-08-04] VITALS: Ht 167.6 cm; Wt 71.7 kg
--- NOTE | 2016-08-04 06:39 | Anethesia Preoperative Eval ---
Anesthesia Pre-op PMH/ROS General Date of Evaluation: Aug 04, 2016 Time of Evaluation: 06:39 Anesthesiologist: favian ASA Score: ASA 3 Mallampati Score Class I : Soft palate, uvula, fauces, pillars visible Class II: Soft palate, uvula, fauces visible Class III: Soft palate, base of uvula visible Class IV: Only hard plate visible Mallampati Classification: Class II Surgeon: monique Diagnosis: small intestinal lesion Surgical Procedure: enteroscopy Anesthesia History: none Social History: smoking - nonsmoker Family History: no anesthesia problems Allergies: Coded Allergies: No Known Allergies (Unverified , 09/12/14) Medications: see eMAR Past Medical History Gastrointestinal/Genitourinary: Reports: GERD, other - sm intestinal lesion Neurologic/Psychiatric: Reports: depression/anxiety Hematology/Immune: Reports: anemia, other - HIV+ Anesthesia Pre-op Phys. Exam Physician Exam Constitutional: NAD Neurologic: CN 2-12 intact Cardiovascular: RRR Respiratory: CTA Gastrointestinal: S/NT/ND Airway Exam Mallampati Score: Class II MO: full Neck: supple TMD: 2fb ROM: full Teeth: intact Anesthesia Pre-op A/P Risk Assessment & Plan Assessment: small intestinal lesion Plan: enteroscopy Status Change Before Surgery: No Pre-Antibiotics Drug: NGHIA Garcia Aug 04, 2016 06:39
[~2016-08-04 09:47] MED LIST changes: +LR 1000ml 1,000 ML IVLG SCH
--- NOTE | 2016-08-04 09:56 | Pre-Procedure Note/Attestation ---
Pre-Procedure Note/Attestation Complete Prior to Procedure Planned Procedure: not applicable Procedure Narrative: entreoscopy Indications for Procedure Pre-Operative Diagnosis: abnormal capsule endoscopy Attestation I attest that I discussed the nature of the procedure; its benefits; risks and complications; and alternatives (and the risks and benefits of such alternatives ), prior to the procedure, with the patient (or the patient's legal goodwill representative). I attest that, if there was a reasonable possibility of needing a blood transfusion, the patient (or the patient's legal goodwill representative) was given the [facility] standardized written summary, pursuant to the Srinivas Larissa Blood Safety Act ([place] Health and Safety Code # 1645, as amended). I attest that I re-evaluated the patient just prior to the surgery and that there has been no change in the patient's H&P, except as documented below: JET ROLAND Aug 04, 2016 09:56
--- NOTE | 2016-08-04 09:58 | Short Stay Surgery H&P ---
History of Present Illness History of Present Illness Chief Complaint abnormal capsule endoscopy h/o of severe GIB HPI Jerrell Devries is a 50 year old male who was admitted on for Small Intestinal Lesion Patient History Allergies: Coded Allergies: No Known Allergies (Unverified , 09/12/14) PAST MEDICAL HISTORY: (1) Anemia (2) Upper GI bleed (3) Leukocytosis (4) Protein malnutrition Past Surgeries: Social History: Medication History Scheduled Alprazolam* (Xanax*), 0.25 MG ORAL DAILY, (Reported) Bupropion Hcl* (Wellbutrin Xl*), 150 MG ORAL DAILY, (Reported) Calcium Carbonate/Vitamin D3 (Calcium 500 mg Chewable Tablet), 1 EACH PO DAILY, (Reported) Elviteg/Jessica/Emtric/Tenofo Ala (Genvoya Tablet), 1 EACH PO DAILY, (Reported) Furosemide* (Lasix*), 20 MG ORAL DAILY, (Reported) Lipase/Protease/Amylase (Creon Dr 24,000 Units Capsule), 1 EACH PO TID, ( Reported) Loperamide HCl (Loperamide), 2 MG ORAL QID, (Reported) Loratadine (Claritin), 10 MG ORAL DAILY, (Reported) Naloxegol Oxalate (Movantik), 25 MG PO DAILY, (Reported) Pantoprazole Sodium (Protonix), 40 MG GT DAILY Spironolactone* (Aldactone*), 100 MG ORAL DAILY, (Reported) Scheduled PRN Oxycodone Hcl* (Oxycodone Hcl*), 15 MG ORAL Q12HR PRN for For Pain, (Reported) Review of Systems Cardiovascular: Reports: no symptoms Respiratory: Reports: no symptoms Skeletal: Reports: no symptoms Gastrointestinal: Reports: no symptoms Genitourinary: Reports: no symptoms Neurologic: Reports: no symptoms Endocrine: Reports: no symptoms Hematologic: Reports: no symptoms Physical Exam Skin: normal HENT: normal Heart: normal Lungs: normal Abdomen: normal Extremities: normal Plan Plan of Care enteroscopy Final Diagnosis: Attestation Are the patient's medical conditions optimized for surgery? JET ROLAND Aug 04, 2016 09:58
[2016-08-04] MEDS ORDERED: HYOSCYAMINE0.125 MG PO (10:28)
[2016-08-04] MEDS ORDERED: DICYCLOMINE HCL20 M1 PO (10:28)
[2016-08-04] MEDS ORDERED: Propofol 10mg/ml 20ml IV ONE (11:00)
[2016-08-04] MEDS ORDERED: Lidocaine 1% MPF 10mg/ml 5ml ONE (11:00)
--- NOTE | 2016-08-04 11:48 | Endoscopy Procedure Note ---
Endoscopy Procedure Note Indication for Procedure: abnormal capsule endoscopy Procedures Performed: other - enteroscopy Operative Findings/Diagnosis: doudenal edema Specimen: yes Pt Tolerated Procedure Well: No Estimated Blood Loss: none Anesthesiologist: murali cárdenas Anesthesia: MAC Implant(s) used?: No 50 yrs or older w/o bx or poly: Not Applicable 10yrs. F/U not recommended: Not Applicable JET ROLAND Aug 04, 2016 11:48
--- NOTE | 2016-08-04 12:24 | Immediate Post-Op Evaluation ---
Immediate Post-Op Evalulation Immediate Post-Op Evalulation Procedure: enteroscopy Date of Evaluation: Aug 04, 2016 Time of Evaluation: 12:17 IV Fluids: 0,9ns 550ml Blood Products: none Estimated Blood Loss: negligible Blood Pressure Systolic: 104 Blood Pressure Diastolic: 38 Pulse Rate: 69 Respiratory Rate: 14 O2 Sat by Pulse Oximetry: 100 Pain Score (1-10): 0 Nausea: No Vomiting: No Complications possible aspiration. patient was intubated/extubated in procedure room due to transient desaturation, spontaneous ventilation continued in PACU CXR patient awake alert verbally responsive and appropriate Patient Status: awake, reacts, patent Hydration Status: adequate Drug: NGHIA Garcia Aug 04, 2016 12:24
[2016-08-04 13:00] LABS: MEAN CORPUSCULAR HGB CONC 28.2 G/DL (32.0-36.0); MEAN CORPUSCULAR VOLUME 67 FL (80-99); MEAN PLATELET VOLUME 6.2 FL (6.5-10.1); PLATELET COUNT 294 K/UL (150-450); RED BLOOD COUNT 4.26 M/UL (4.70-6.10); WHITE BLOOD COUNT 3.9 K/UL (4.8-10.8)
[2016-08-04 13:17] LABS: ANION GAP 13 (5-15); CALCIUM 7.5 mg/dL (8.6-10.2); CARBON DIOXIDE 24 mEQ/L (20-30); CHLORIDE 103 mEQ/L (98-107); CREATININE 0.8 mg/dL (0.7-1.2); GLOMERULAR FILTRATION RATE > 60 mL/min (>60); HEMOLYSIS 2; LACTATE DEHYDROGENASE 183 U/L (135-230); SODIUM 140 mEQ/L (135-145)
[2016-08-04 13:26] LABS: ANISOCYTOSIS 2+; BAND NEUTROPHILS % (MANUAL) 0 % (0-8); BASOPHILS % (MANUAL) 0 % (0-2); EOSINOPHILS % (MANUAL) 1 % (0-3); HYPOCHROMASIA 1+; LYMPHOCYTES % (MANUAL) 40 % (20-45); MICROCYTES 2+; NEUTROPHILS % (MANUAL) 52 % (45-75); PLATELET ESTIMATE ADEQUATE; PLATELET MORPHOLOGY NORMAL; TOTAL CELLS COUNTED 100
[2016-08-04] MEDS ORDERED: Mylanta II UD 30ml ORAL PRN (13:45)
[2016-08-04] MEDS ORDERED: Nitroglycerin Subl 0.4mg tab (Bottle Of 25) SL PRN (13:45)
[2016-08-04] MEDS ORDERED: DuoNeb 0.5-3(2.5)mg/3ml neb HHN PRN (13:45)
[2016-08-04] MEDS ORDERED: Miralax 17gm pkt ORAL PRN (13:45)
[2016-08-04] MEDS ORDERED: Promethazine/Codeine 5ml UD ORAL PRN (13:45)
--- NOTE | 2016-08-04 14:00 | Diagnostic Imaging Report ---
Indication: CP, shortness of breath Technique: One view of the chest Comparison: 05/31/2016 Findings: There is volume loss of the left lung with elevation of left hemidiaphragm. There are increased interstitial markings and bronchial markings in the left perihilar region. A small triangular focus of increased attenuation is seen in the retrocardiac region. The right lung, bilateral pleural spaces are clear. Heart size is normal. There is no evidence of subdiaphragmatic free air Impression: Perihilar mostly interstitial opacities on the left. Suspect on the basis of crowding of the bronchovascular markings related to slight left lung volume loss, interstitial infiltrates not excludable Regular focus of increased opacity in the retrocardiac region, could represent a small area of consolidation. Correlate with clinical findings. Consider repeat chest radiograph with better inspiration Images reviewed in person with GI nurse Ya
--- NOTE | 2016-08-04 14:06 | Diagnostic Imaging Report ---
Indication: Abdominal distention Technique: Supine view of the abdomen Comparison: none Findings: Considerable gas is seen within large and small bowel, bladder which is upper limits of normal in caliber but not frankly dilated. No unusual masses or calcifications. Impression: Considerable bowel gas, presumably related to insufflation from recent EGD No acute process
[2016-08-04] MEDS ORDERED: ALIGN4 M1 PO (14:57)
--- NOTE | 2016-08-04 16:40 | 48 Hour Post Anesthesia Eval ---
Post Anesthesia Evaluation Procedure: enteroscopy Date of Evaluation: Aug 04, 2016 Time of Evaluation: 16:38 Blood Pressure Systolic: 122 0: 46 Pulse Rate: 66 Respiratory Rate: 16 Temperature (Fahrenheit): 98.5 O2 Sat by Pulse Oximetry: 97 Airway: patent Nausea: No Vomiting: No Pain Intensity: 0 Hydration Status: adequate Cardiopulmonary Status: stable Mental Status/LOC: patient returned to baseline Post-Anesthesia Complications: none Follow-up care needed: N/A NGHIA LUCAS Aug 04, 2016 16:40
--- NOTE | 2016-08-04 16:55 | Consultation ---
History of Present Illness General Date patient seen: Aug 04, 2016 Chief Complaint: dyspnea Present Illness HPI 50 year old male with hx of HIV was having upper endoscopy, he apparently aspirated and transferred to [facility] from recovery room for further evaluation and care. Pt is asymptomatic, CXR showed LLL infiltrate. Allergies: Coded Allergies: No Known Allergies (Unverified , 09/12/14) Medication History Scheduled Bifidobacterium Infantis (Align), 4 MG PO DAILY, (Reported) Dicyclomine Hcl (Dicyclomine Hcl), 20 MG PO QID, (Reported) Elviteg/Jessica/Emtric/Tenofo Ala (Genvoya Tablet), 1 EACH PO DAILY, (Reported) Hyoscyamine Sulfate (Hyoscyamine Sulfate), 0.125 MG PO THREE TIMES A WEEK, ( Reported) Loratadine (Claritin), 10 MG ORAL DAILY, (Reported) Scheduled PRN Oxycodone Hcl* (Oxycodone Hcl*), 15 MG ORAL Q12HR PRN for For Pain, (Reported) Discontinued Medications Alprazolam* (Xanax*), 0.25 MG ORAL DAILY, (Reported) Discontinued Reason: Pt stopped taking med Bupropion Hcl* (Wellbutrin Xl*), 150 MG ORAL DAILY, (Reported) Discontinued Reason: Pt stopped taking med Calcium Carbonate/Vitamin D3 (Calcium 500 mg Chewable Tablet), 1 EACH PO DAILY, (Reported) Discontinued Reason: Pt stopped taking med Furosemide* (Lasix*), 20 MG ORAL DAILY, (Reported) Discontinued Reason: Pt stopped taking med Lipase/Protease/Amylase (Creon Dr 24,000 Units Capsule), 1 EACH PO TID, ( Reported) Discontinued Reason: Pt stopped taking med Loperamide HCl (Loperamide), 2 MG ORAL QID, (Reported) Discontinued Reason: Pt stopped taking med Naloxegol Oxalate (Movantik), 25 MG PO DAILY, (Reported) Discontinued Reason: Pt stopped taking med Pantoprazole Sodium (Protonix), 40 MG GT DAILY Discontinued Reason: Pt stopped taking med Spironolactone* (Aldactone*), 100 MG ORAL DAILY, (Reported) Discontinued Reason: Pt stopped taking med Patient History Healthcare decision maker Y Resuscitation status Full Code Advanced Directive on File No Past Medical/Surgical History Past Medical/Surgical History: (1) HIV disease Review of Systems All Other Systems: negative except mentioned in HPI Physical Exam General Appearance: WD/WN Lines, tubes and drains: peripheral HEENT: normocephalic, atraumatic Neck: non-tender, normal alignment Respiratory/Chest: chest wall non-tender, lungs clear, normal breath sounds Cardiovascular/Chest: normal peripheral pulses, normal rate Abdomen: normal bowel sounds Genitourinary/Rectal: normal genital exam Extremities: normal range of motion, non-tender Skin Exam: normal pigmentation 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 normal Last 24 Hour Vital Signs Date Time Temp Pulse Resp B/P Pulse Ox O2 Delivery O2 Flow Rate FiO2 08/04/16 16:40 66 16 97 08/04/16 16:00 99.2 87 21 113/71 94 Room Air 08/04/16 14:30 98.5 66 16 122/46 97 Room Air 08/04/16 14:15 68 18 113/49 97 Room Air 08/04/16 14:00 68 18 113/49 97 Room Air 08/04/16 13:45 72 18 111/52 96 Room Air 08/04/16 13:30 60 18 103/48 98 Room Air 08/04/16 13:15 75 19 94/46 98 Room Air 08/04/16 13:00 73 20 94/50 98 Room Air 08/04/16 12:45 68 18 100/48 98 Room Air 08/04/16 12:30 68 20 105/48 98 Room Air 08/04/16 12:24 69 14 100 08/04/16 12:20 73 16 102/56 96 Simple Mask 6.0 08/04/16 12:10 79 18 104/58 92 Simple Mask 6.0 08/04/16 12:00 97.4 76 25 140/83 94 Simple Mask 6.0 08/04/16 10:29 98.1 71 20 100/57 99 Room Air Laboratory Tests Test 08/04/16 12:30 White Blood Count 3.9 K/UL (4.8-10.8) L Red Blood Count 4.26 M/UL (4.70-6.10) L Hemoglobin 8.1 G/DL (14.2-18.0) L Hematocrit 28.7 % (42.0-52.0) L Mean Corpuscular Volume 67 FL (80-99) L Mean Corpuscular Hemoglobin 19.0 PG (27.0-31.0) L Mean Corpuscular Hemoglobin Concent 28.2 G/DL (32.0-36.0) L Red Cell Distribution Width 21.0 % (11.6-14.8) H Platelet Count 294 K/UL (150-450) Mean Platelet Volume 6.2 FL (6.5-10.1) L Neutrophils (%) (Auto) % (45.0-75.0) Lymphocytes (%) (Auto) % (20.0-45.0) Monocytes (%) (Auto) % (1.0-10.0) Eosinophils (%) (Auto) % (0.0-3.0) Basophils (%) (Auto) % (0.0-2.0) Differential Total Cells Counted 100 Neutrophils % (Manual) 52 % (45-75) Lymphocytes % (Manual) 40 % (20-45) Monocytes % (Manual) 7 % (1-10) Eosinophils % (Manual) 1 % (0-3) Basophils % (Manual) 0 % (0-2) Band Neutrophils 0 % (0-8) Platelet Estimate Adequate Platelet Morphology Normal Hypochromasia 1+ Anisocytosis 2+ Microcytosis 2+ Sodium Level 140 mEQ/L (135-145) Potassium Level 4.0 mEQ/L (3.4-4.9) Chloride Level 103 mEQ/L (98-107) Carbon Dioxide Level 24 mEQ/L (20-30) Anion Gap 13 (5-15) Blood Urea Nitrogen 12 mg/dL (7-23) Creatinine 0.8 mg/dL (0.7-1.2) Estimat Glomerular Filtration Rate > 60 mL/min (>60) Glucose Level 97 mg/dL (74-106) Calcium Level 7.5 mg/dL (8.6-10.2) L Lactate Dehydrogenase 183 U/L (135-230) Carcinoembryonic Antigen 4.5 ng/mL H Height (Feet): 5 Height (Inches): 6.00 Weight (Pounds): 158 Medications Current Medications Medications (Trade) Dose Ordered Sig/Antonietta Route PRN Reason Start Time Stop Time Status Last Admin Dose Admin Acetaminophen (Tylenol) 650 mg Q4H PRN ORAL fever 08/04/16 13:45 09/03/16 13:44 Al Hydroxide/Mg Hydroxide (Mylanta II) 30 ml Q6H PRN ORAL dyspepsia 08/04/16 13:45 09/03/16 13:44 Albuterol/ Ipratropium 3 ml 3 ml Q4H PRN HHN Shortness of Breath 08/04/16 13:45 08/09/16 13:44 Cefepime HCl/ Dextrose (Maxipime/D5W) 55 ml @ 110 mls/hr Q12HR@0600,1800 IV 08/04/16 18:00 08/11/16 17:59 Nitroglycerin (Ntg) 0.4 mg Q5MIN X 3 DOSES PRN SL Prn Chest Pain 08/04/16 13:45 09/03/16 13:44 Ondansetron HCl (Zofran) 4 mg Q6H PRN IVP Nausea & Vomiting 08/04/16 13:45 09/03/16 13:44 Oxycodone HCl (Roxicodone) 15 mg Q12H PRN ORAL For Pain 08/04/16 16:45 08/11/16 16:44 Polyethylene Glycol (Miralax) 17 gm DAILYPRN PRN ORAL Constipation 08/04/16 13:45 09/03/16 13:44 Promethazine HCl/ Codeine (Phenergan with Codeine) 5 ml Q4H PRN ORAL For Cough 08/04/16 13:45 09/03/16 13:44 Temazepam (Restoril) 15 mg HSPRN PRN ORAL Insomnia 08/04/16 13:45 08/11/16 13:44 Vancomycin HCl 1 ea 1 ea DAILY PRN MISC Per rx protocol 08/04/16 13:45 09/03/16 13:44 Vancomycin HCl/ Dextrose (Vancomycin/D5W) 325 ml @ 162.5 mls/ hr Q12HR@0700,1900 IVPB 08/04/16 19:00 08/09/16 18:59 Assessment/Plan Problem List: (1) Aspiration pneumonia ICD Codes: J69.0 - Pneumonitis due to inhalation of food and vomit SNOMED: 083759889 (2) HIV disease ICD Codes: B20 - Human immunodeficiency virus [HIV] disease SNOMED: 32469026 (3) Leukocytosis ICD Codes: D72.829 - Elevated white blood cell count, unspecified SNOMED: 572588404, 701022457 Assessment/Plan respiratory treatment titrate fo2 to sat of 92% IV antibiotics dvt prohylaxis CAROL SLATER Aug 04, 2016 16:55
[2016-08-04] MEDS: oxyCODONE 15mg IR tab ORAL PRN (17:30)
--- NOTE | 2016-08-04 17:30 | Procedure Note ---
DATE OF PROCEDURE: 08/04/2016 SURGEON: Jaswant Macario M.D. PROCEDURE: Enteroscopy with biopsy. ANESTHESIOLOGIST: Flora Cuadra M.D. INSTRUMENT: Olympus pediatric colonoscope. INDICATION: Abnormal finding in capsule endoscopy. REASON FOR PROCEDURE: The procedure, risks, benefits, and possible consequences, including hemorrhage, aspiration, perforation and infection, and alternative treatments, were explained to the patient/legal guardian by Dr. Jaswant Macario and the patient/legal guardian understood and accepted these risks. PROCEDURE: After informed consent was obtained and the patient was adequately sedated, the pediatric colonoscope was advanced from mouth into the small intestine. We went as far as we could. Unfortunately we did not get to the area we wanted to get which was seen on the capsule to be able to do a biopsy of the abnormal tissue but we did a biopsy from the area that we reached the most distal part of the small intestine that we could reach with this pediatric colonoscope. The procedure was complicated. The patient had evidence of hiccups during the procedure and postoperatively we thought that the patient was probably aspirated given he was desaturating so required intubation postprocedure. SUMMARY OF FINDINGS: Abnormal enteroscopy with bowel edema in the small intestine but unfortunately we could not get to the area, which was seen with the capsule. RECOMMENDATIONS: 1. Followup biopsy results. 2. The patient was intubated during this procedure given possible aspiration, we will follow. I want to thank, Dr. Mendez, for this kind referral. Jaswant Macario M.D. DR: Love JOB#: [id number] CC: Patrick Mendez M.D.; Fax#: [phone]
[2016-08-04] MEDS: Cefepime HCl 1 GM in D5W 55 ML IV SCH (17:58)
[2016-08-04] MEDS: Vancomycin 1.5 GM/D5W 325 ML IVPB SCH ×2 (18:40)
[2016-08-04] MEDS ORDERED: Heparin 5000 units/ml inj SUBQ SCH (21:00)
[2016-08-05] VITALS: BP 95/57
[2016-08-05 04:00] VITALS: BP 99/53
[2016-08-05 05:11] LABS: MEAN CORPUSCULAR HEMOGLOBIN 20.6 PG (27.0-31.0); MEAN CORPUSCULAR HGB CONC 29.9 G/DL (32.0-36.0); MEAN CORPUSCULAR VOLUME 69 FL (80-99); MEAN PLATELET VOLUME 7.4 FL (6.5-10.1); PLATELET COUNT 249 K/UL (150-450); RED BLOOD COUNT 4.36 M/UL (4.70-6.10); RED CELL DISTRIBUTION WIDTH 21.3 % (11.6-14.8); WHITE BLOOD COUNT 18.4 K/UL (4.8-10.8)
[2016-08-05 05:46] LABS: ALANINE AMINOTRANSFERASE 8 U/L (3-41); ALBUMIN/GLOBULIN RATIO 0.9 (1.0-2.7); ANION GAP 12 (5-15); ASPARTATE AMINO TRANSFERASE 20 U/L (5-40); CALCIUM 7.8 mg/dL (8.6-10.2); CARBON DIOXIDE 24 mEQ/L (20-30); CHLORIDE 103 mEQ/L (98-107); CREATININE 0.7 mg/dL (0.7-1.2); GLOMERULAR FILTRATION RATE > 60 mL/min (>60); HEMOLYSIS 0; PHOSPHORUS 3.4 mg/dL (2.5-4.8); POTASSIUM 4.1 mEQ/L (3.4-4.9); SODIUM 139 mEQ/L (135-145); TOTAL PROTEIN 4.8 g/dL (6.6-8.7)
[2016-08-05 05:48] LABS: MAGNESIUM 1.6 mg/dL (1.7-2.5)
[2016-08-05] MEDS: Cefepime HCl 1 GM in D5W 55 ML IV SCH ×2 (06:02→17:41)
[2016-08-05 06:11] LABS: INR 1.1 (0.9-1.1)
[2016-08-05 07:35] LABS: ANISOCYTOSIS 3+; BAND NEUTROPHILS % (MANUAL) 1 % (0-8); BASOPHILS % (MANUAL) 1 % (0-2); EOSINOPHILS % (MANUAL) 0 % (0-3); HYPOCHROMASIA 2+; LYMPHOCYTES % (MANUAL) 6 % (20-45); MICROCYTES 2+; NEUTROPHILS % (MANUAL) 89 % (45-75); PLATELET ESTIMATE ADEQUATE; PLATELET MORPHOLOGY NORMAL; TOTAL CELLS COUNTED 100
[2016-08-05 07:47] LABS: PATH BLOOD SMEAR/OMC SENT TO PATHOLOGIST
[2016-08-05 07:49] LABS: RETICULOCYTE COUNT 1.6 % (0.0-2.0)
[2016-08-05 08:00] VITALS: BP 99/55
[2016-08-05 08:09] LABS: ERYTHROCYTE SEDIMENTATION RATE 15 MM/HR (0-15)
[2016-08-05] MEDS: Vancomycin 1.5 GM/D5W 325 ML IVPB SCH ×2 (09:07)
[2016-08-05] MEDS: oxyCODONE 15mg IR tab ORAL PRN ×2 (10:13→22:14)
[2016-08-05 10:31] LABS: OTHERS PATHOLOGIST COMMENT
--- NOTE | 2016-08-05 11:14 | Pulmonology Progress Note ---
Assessment/Plan Problems: (1) Aspiration pneumonia (2) DVT (deep venous thrombosis) (3) Leukocytosis (4) HIV disease Assessment/Plan d/w dr Dillard from Radiology, pt doens't need any IVC filter since the thrombus is below the knee continue abx for now will dc home in am with oral abx after being seen by ID f/u by GI Subjective ROS Limited/Unobtainable: No Constitutional: Reports: no symptoms HEENT: Repors: no symptoms Allergies: Coded Allergies: No Known Allergies (Unverified , 09/12/14) Objective Last 24 Hour Vital Signs Date Time Temp Pulse Resp B/P Pulse Ox O2 Delivery O2 Flow Rate FiO2 08/05/16 08:00 98.1 61 18 99/55 100 Room Air 08/05/16 07:37 56 08/05/16 04:00 72 08/05/16 04:00 99.5 68 20 99/53 95 08/05/16 00:00 69 08/05/16 00:00 99.3 67 20 95/57 98 Room Air 08/04/16 20:00 91 08/04/16 20:00 100.3 92 20 96/57 95 Room Air 08/04/16 16:40 66 16 97 08/04/16 16:00 99.2 87 21 113/71 94 Room Air 08/04/16 14:30 98.5 66 16 122/46 97 Room Air 08/04/16 14:15 68 18 113/49 97 Room Air 08/04/16 14:00 68 18 113/49 97 Room Air 08/04/16 13:45 72 18 111/52 96 Room Air 08/04/16 13:30 60 18 103/48 98 Room Air 08/04/16 13:15 75 19 94/46 98 Room Air 08/04/16 13:00 73 20 94/50 98 Room Air 08/04/16 12:45 68 18 100/48 98 Room Air 08/04/16 12:30 68 20 105/48 98 Room Air 08/04/16 12:24 69 14 100 08/04/16 12:20 73 16 102/56 96 Simple Mask 6.0 08/04/16 12:10 79 18 104/58 92 Simple Mask 6.0 08/04/16 12:00 97.4 76 25 140/83 94 Simple Mask 6.0 Intake and Output 6/28/17 6/29/17 19:00 07:00 Intake Total 250 ml 630.0 ml Balance 250 ml 630.0 ml Intake Oral 0 ml 0 ml IV Total 250 ml 380.0 ml Blood Product 250 ml # Voids 2 # Bowel Movements 2 General Appearance: WD/WN HEENT: normocephalic, atraumatic Respiratory/Chest: chest wall non-tender, lungs clear Cardiovascular: normal peripheral pulses, normal rate Abdomen: normal bowel sounds, soft, non tender Genitourinary: normal external genitalia Extremities: no cyanosis Neurologic/Psychiatric: lease 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 normal, abnormal gait, normal mood/ affect Lymphatic: no groin adenopathy Laboratory Tests 08/04/16 12:30: White Blood Count 3.9L, Red Blood Count 4.26L, Hemoglobin 8.1L, Hematocrit 28.7L , Mean Corpuscular Volume 67L, Mean Corpuscular Hemoglobin 19.0L, Mean Corpuscular Hemoglobin Concent 28.2L, Red Cell Distribution Width 21.0H, Platelet Count 294, Mean Platelet Volume 6.2L, Neutrophils (%) (Auto) , Lymphocytes (%) (Auto) , Monocytes (%) (Auto) , Eosinophils (%) (Auto) , Basophils (%) (Auto) , Differential Total Cells Counted 100, Neutrophils % ( Manual) 52, Lymphocytes % (Manual) 40, Monocytes % (Manual) 7, Eosinophils % ( Manual) 1, Basophils % (Manual) 0, Band Neutrophils 0, Other Cell Type Pathologist comment, Platelet Estimate Adequate, Platelet Morphology Normal, Hypochromasia 1+, Anisocytosis 2+, Microcytosis 2+, Sodium Level 140, Potassium Level 4.0, Chloride Level 103, Carbon Dioxide Level 24, Anion Gap 13, Blood Urea Nitrogen 12, Creatinine 0.8, Estimat Glomerular Filtration Rate > 60, Glucose Level 97, Calcium Level 7.5L, Lactate Dehydrogenase 183, Carcinoembryonic Antigen 4.5H 08/05/16 03:50: White Blood Count 18.4#H, Red Blood Count 4.36L, Hemoglobin 9.0L, Hematocrit 30.1L, Mean Corpuscular Volume 69L, Mean Corpuscular Hemoglobin 20.6L, Mean Corpuscular Hemoglobin Concent 29.9L, Red Cell Distribution Width 21.3H, Platelet Count 249, Mean Platelet Volume 7.4, Neutrophils (%) (Auto) , Lymphocytes (%) (Auto) , Monocytes (%) (Auto) , Eosinophils (%) (Auto) , Basophils (%) (Auto) , Differential Total Cells Counted 100, Neutrophils % ( Manual) 89H, Lymphocytes % (Manual) 6L, Monocytes % (Manual) 3, Eosinophils % ( Manual) 0, Basophils % (Manual) 1, Band Neutrophils 1, Platelet Estimate Adequate, Platelet Morphology Normal, Hypochromasia 2+, Anisocytosis 3+, Microcytosis 2+, Sodium Level 139, Potassium Level 4.1, Chloride Level 103, Carbon Dioxide Level 24, Anion Gap 12, Blood Urea Nitrogen 10, Creatinine 0.7, Estimat Glomerular Filtration Rate > 60, Glucose Level 91, Calcium Level 7.8L, Lactate Dehydrogenase 246H, Carcinoembryonic Antigen 4.1H, Erythrocyte Sedimentation Rate 15, Reticulocyte Count 1.6, Prothrombin Time 11.0, Prothromb Time International Ratio 1.1, Activated Partial Thromboplast Time 27, Phosphorus Level 3.4, Magnesium Level 1.6L, Iron Level 13L, Total Iron Binding Capacity 315, Percent Iron Saturation 4L, Unsaturated Iron Binding 302, Total Bilirubin 0.3, Aspartate Amino Transf (AST/SGOT) 20, Alanine Aminotransferase ( ALT/SGPT) 8, Alkaline Phosphatase 111, Total Protein 4.8L, Albumin 2.3L, Globulin 2.5, Albumin/Globulin Ratio 0.9L, Vitamin B12 Level 413, Folate [ Pending] Current Medications Medications (Trade) Dose Ordered Sig/Antonietta Route PRN Reason Start Time Stop Time Status Last Admin Dose Admin Acetaminophen (Tylenol) 650 mg Q4H PRN ORAL fever 08/04/16 13:45 09/03/16 13:44 Al Hydroxide/Mg Hydroxide (Mylanta II) 30 ml Q6H PRN ORAL dyspepsia 08/04/16 13:45 09/03/16 13:44 Albuterol/ Ipratropium 3 ml 3 ml Q4H PRN HHN Shortness of Breath 08/04/16 13:45 08/09/16 13:44 Cefepime HCl/ Dextrose (Maxipime/D5W) 55 ml @ 110 mls/hr Q12HR@0600,1800 IV 08/04/16 18:00 08/11/16 17:59 08/05/16 06:02 Nitroglycerin (Ntg) 0.4 mg Q5MIN X 3 DOSES PRN SL Prn Chest Pain 08/04/16 13:45 09/03/16 13:44 Ondansetron HCl (Zofran) 4 mg Q6H PRN IVP Nausea & Vomiting 08/04/16 13:45 09/03/16 13:44 Oxycodone HCl (Roxicodone) 15 mg Q12H PRN ORAL For Pain 08/04/16 16:45 08/11/16 16:44 08/05/16 10:13 Polyethylene Glycol (Miralax) 17 gm DAILYPRN PRN ORAL Constipation 08/04/16 13:45 09/03/16 13:44 Promethazine HCl/ Codeine (Phenergan with Codeine) 5 ml Q4H PRN ORAL For Cough 08/04/16 13:45 09/03/16 13:44 Temazepam (Restoril) 15 mg HSPRN PRN ORAL Insomnia 08/04/16 13:45 08/11/16 13:44 Vancomycin HCl 1 ea 1 ea DAILY PRN MISC Per rx protocol 08/04/16 13:45 09/03/16 13:44 Vancomycin HCl/ Dextrose (Vancomycin/D5W) 325 ml @ 162.5 mls/ hr Q12HR@0700,1900 IVPB 08/04/16 19:00 08/09/16 18:59 08/05/16 09:07 CAROL SLATER Aug 05, 2016 11:14
[2016-08-05 11:57] VITALS: BP 113/67
--- NOTE | 2016-08-05 13:43 | GI Progress Note ---
Assessment/Plan Problems: (1) DVT (deep venous thrombosis) ICD Codes: I82.409 - Acute embolism and thrombosis of unspecified deep veins of unspecified lower extremity SNOMED: 421748479 (2) Upper GI bleed ICD Codes: K92.2 - Gastrointestinal hemorrhage, unspecified SNOMED: 25325002 (3) Leukocytosis ICD Codes: D72.829 - Elevated white blood cell count, unspecified SNOMED: 760011947, 996321857 (4) Anemia ICD Codes: D64.9 - Anemia, unspecified SNOMED: 731724580 (5) Protein malnutrition ICD Codes: E46 - Unspecified protein-calorie malnutrition SNOMED: 271186401 (6) Encounter for diagnostic endoscopy ICD Codes: Z01.818 - Encounter for other preprocedural examination SNOMED: 946157557, 212175897 (7) Small bowel bleed requiring more than 4 units of blood in 24 hours, ICU, or surgery ICD Codes: K92.2 - Gastrointestinal hemorrhage, unspecified SNOMED: 75385435, 58928412 Status: unchanged Status Narrative Discussed with Dr. Macario. Assessment/Plan SUMMARY OF FINDINGS: Abnormal enteroscopy with bowel edema in the small intestine but unfortunately we could not get to the area, which was seen with the capsule. RECOMMENDATIONS: 1. Followup biopsy results. 2. The patient was intubated during this procedure given possible aspiration, we will follow. abx iron deficiency >> venofer electrolyte replacement patient to be scheduled for Endoscopic Double Balloon at [facility] to evaluate bowel edema Subjective Gastrointestinal/Abdominal: Reports: no symptoms Objective Last 24 Hour Vital Signs Date Time Temp Pulse Resp B/P Pulse Ox O2 Delivery O2 Flow Rate FiO2 08/05/16 11:57 98.2 73 18 113/67 98 Room Air 08/05/16 08:00 98.1 61 18 99/55 100 Room Air 08/05/16 07:37 56 08/05/16 04:00 72 08/05/16 04:00 99.5 68 20 99/53 95 08/05/16 00:00 69 08/05/16 00:00 99.3 67 20 95/57 98 Room Air 08/04/16 20:00 91 08/04/16 20:00 100.3 92 20 96/57 95 Room Air 08/04/16 16:40 66 16 97 08/04/16 16:00 99.2 87 21 113/71 94 Room Air 08/04/16 14:30 98.5 66 16 122/46 97 Room Air 08/04/16 14:15 68 18 113/49 97 Room Air 08/04/16 14:00 68 18 113/49 97 Room Air 08/04/16 13:45 72 18 111/52 96 Room Air Intake and Output 08/04/16 08/05/16 19:00 07:00 Intake Total 250 ml 630.0 ml Balance 250 ml 630.0 ml Intake Oral 0 ml 0 ml IV Total 250 ml 380.0 ml Blood Product 250 ml # Voids 2 # Bowel Movements 2 Laboratory Tests Test 08/05/16 03:50 White Blood Count 18.4 K/UL (4.8-10.8) #H Red Blood Count 4.36 M/UL (4.70-6.10) L Hemoglobin 9.0 G/DL (14.2-18.0) L Hematocrit 30.1 % (42.0-52.0) L Mean Corpuscular Volume 69 FL (80-99) L Mean Corpuscular Hemoglobin 20.6 PG (27.0-31.0) L Mean Corpuscular Hemoglobin Concent 29.9 G/DL (32.0-36.0) L Red Cell Distribution Width 21.3 % (11.6-14.8) H Platelet Count 249 K/UL (150-450) Mean Platelet Volume 7.4 FL (6.5-10.1) Neutrophils (%) (Auto) % (45.0-75.0) Lymphocytes (%) (Auto) % (20.0-45.0) Monocytes (%) (Auto) % (1.0-10.0) Eosinophils (%) (Auto) % (0.0-3.0) Basophils (%) (Auto) % (0.0-2.0) Differential Total Cells Counted 100 Neutrophils % (Manual) 89 % (45-75) H Lymphocytes % (Manual) 6 % (20-45) L Monocytes % (Manual) 3 % (1-10) Eosinophils % (Manual) 0 % (0-3) Basophils % (Manual) 1 % (0-2) Band Neutrophils 1 % (0-8) Platelet Estimate Adequate Platelet Morphology Normal Hypochromasia 2+ Anisocytosis 3+ Microcytosis 2+ Erythrocyte Sedimentation Rate 15 MM/HR (0-15) Reticulocyte Count 1.6 % (0.0-2.0) Prothrombin Time 11.0 SEC (9.30-11.50) Prothromb Time International Ratio 1.1 (0.9-1.1) Activated Partial Thromboplast Time 27 SEC (23-33) Sodium Level 139 mEQ/L (135-145) Potassium Level 4.1 mEQ/L (3.4-4.9) Chloride Level 103 mEQ/L (98-107) Carbon Dioxide Level 24 mEQ/L (20-30) Anion Gap 12 (5-15) Blood Urea Nitrogen 10 mg/dL (7-23) Creatinine 0.7 mg/dL (0.7-1.2) Estimat Glomerular Filtration Rate > 60 mL/min (>60) Glucose Level 91 mg/dL (74-106) Calcium Level 7.8 mg/dL (8.6-10.2) L Phosphorus Level 3.4 mg/dL (2.5-4.8) Magnesium Level 1.6 mg/dL (1.7-2.5) L Iron Level 13 ug/dL (59-158) L Total Iron Binding Capacity 315 ug/dL (250-400) Percent Iron Saturation 4 % (15-50) L Unsaturated Iron Binding 302 ug/dL (112-346) Total Bilirubin 0.3 mg/dL (0.0-1.2) Aspartate Amino Transf (AST/SGOT) 20 U/L (5-40) Alanine Aminotransferase (ALT/SGPT) 8 U/L (3-41) Alkaline Phosphatase 111 U/L (40-129) Lactate Dehydrogenase 246 U/L (135-230) H Total Protein 4.8 g/dL (6.6-8.7) L Albumin 2.3 g/dL (3.5-5.2) L Globulin 2.5 g/dL Albumin/Globulin Ratio 0.9 (1.0-2.7) L Carcinoembryonic Antigen 4.1 ng/mL H Vitamin B12 Level 413 pg/mL (211-946) Folate Pending Height (Feet): 5 Height (Inches): 6.00 Weight (Pounds): 158 General Appearance: no apparent distress, alert Cardiovascular: normal rate Respiratory/Chest: normal breath sounds, no respiratory distress Abdominal Exam: normal bowel sounds, non tender, soft Extremities: normal range of motion, non-tender Gloria Patrick N.P. Aug 05, 2016 13:43
[2016-08-05] MEDS ORDERED: Iron Sucrose 100 MG in NS 55 ML IVPB ONE (14:00)
[2016-08-05 16:00] VITALS: BP 104/61
[2016-08-05 20:35] VITALS: BP 118/48
--- NOTE | 2016-08-05 21:33 | Consultation ---
Consult Note Consult Note [id number] JOANNE NATHAN M.D. Aug 05, 2016 21:33
[2016-08-06 00:22] VITALS: BP 101/59
[2016-08-06] MEDS: metroNIDAZOLE 500mg 100 ML IVPB SCH ×2 (01:32→08:56)
--- NOTE | 2016-08-06 02:01 | Consultation ---
DATE OF CONSULTATION: INFECTIOUS DISEASE CONSULTATION REFERRING PHYSICIAN: Romeo Moon M.D. REASON FOR CONSULTATION: Evaluation of the patient for leukocytosis, HIV and antibiotic management and possible pneumonia. HISTORY OF PRESENT ILLNESS: The patient is a 50-year-old male with past medical history as mentioned above, who underwent upper endoscopy and the patient aspirated and because of that the patient was admitted to [facility]. Chest x-ray showed left lower lobe infiltrate. Infectious Disease consultation has been requested for further evaluation of the patient's antibiotic management. PAST MEDICAL HISTORY: 1. HIV (unknown CD 4 count and viral dose). 2. History of GERD. 3. History of GI bleed. 4. Depression. MEDICATIONS: IV cefepime. ALLERGIES: No known drug allergies. SOCIAL HISTORY: Negative for drug abuse. FAMILY HISTORY: Noncontributory. REVIEW OF SYSTEMS: A 10-point review was done and except what is mentioned has been negative. PHYSICAL EXAMINATION: VITAL SIGNS: Temperature 98 degrees, blood pressure 118/48, pulse 86, and T-max 100.3 degrees. HEENT: Mild pale conjunctivae. No icterus. NECK: No lymphadenopathy. CHEST: Clear. HEART: S1 and S2. ABDOMEN: Soft and nontender. EXTREMITIES: No cyanosis. NEUROLOGIC: Awake and alert. LABORATORY AND DIAGNOSTIC DATA: White blood cell 18, hemoglobin 9, and platelet 249,000. BUN 10 and creatinine 0.7. LFT unremarkable. Chest x-ray showed left lower lobe infiltrate. Doppler showed left lower extremity thrombosis in tibioperoneal trunk vein. Abdominal x-ray unremarkable. ASSESSMENT: The patient is a 50-year-old with multiple medical problems, who has 1. Aspiration pneumonia. 2. Human immunodeficiency virus, on Genvoya, unknown CD4 count viral load. PLAN: 1. We will continue the patient on cefepime. Add Flagyl. 2. Monitor CBC. 3. Monitor BMP. 4. on Genvoya. 5. Cultures. 6. Based on the patient's clinical course and labs, we will do further recommendation. Thank you, Dr. Moon, for allowing me to participate in the care of this patient. I will follow the patient with you during this hospitalization. Terry Monroe M.D. DR: ALIDA JOB#: [id number] CC:
[2016-08-06 04:16] VITALS: BP 101/60
[2016-08-06 05:17] LABS: BASOPHILS % (AUTO) 0.6 % (0.0-2.0); EOSINOPHILS % (AUTO) 3.1 % (0.0-3.0); LYMPHOCYTES % (AUTO) 11.8 % (20.0-45.0); MEAN CORPUSCULAR HEMOGLOBIN 19.7 PG (27.0-31.0); MEAN CORPUSCULAR VOLUME 68 FL (80-99); MEAN PLATELET VOLUME 7.2 FL (6.5-10.1); NEUTROPHILS % (AUTO) 75.5 % (45.0-75.0); PLATELET COUNT 252 K/UL (150-450); RED CELL DISTRIBUTION WIDTH 21.5 % (11.6-14.8); WHITE BLOOD COUNT 8.5 K/UL (4.8-10.8)
[2016-08-06] MEDS: Cefepime HCl 1 GM in D5W 55 ML IV SCH (05:20)
[2016-08-06 05:59] LABS: ANION GAP 13 (5-15); CALCIUM 7.9 mg/dL (8.6-10.2); CARBON DIOXIDE 25 mEQ/L (20-30); CHLORIDE 101 mEQ/L (98-107); CREATININE 0.8 mg/dL (0.7-1.2); GLOMERULAR FILTRATION RATE > 60 mL/min (>60); HEMOLYSIS 0; MAGNESIUM 1.9 mg/dL (1.7-2.5); POTASSIUM 4.1 mEQ/L (3.4-4.9); SODIUM 139 mEQ/L (135-145)
[2016-08-06 08:00] VITALS: BP 98/64
[2016-08-06] MEDS: oxyCODONE 15mg IR tab ORAL PRN (10:20)
--- NOTE | 2016-08-06 11:51 | Infectious Diseases Prog Note ---
Assessment/Plan Assessment/Plan A: The patient is a 50-year-old male with low grade fever, SP leukocytosis, SP Asp pneumonia. SP EGD upper endoscopy and Chest x-ray showed left lower lobe infiltrate. I HIV (unknown CD 4 count and viral dose). History of GERD. History of GI bleed. Depression. PLAN: continue the patient on cefepime and Flagyl d# 2 , upon DC will cont on Levaquin and Flagyl x1 wk to complete the course ( Rx in Chart ) Monitor CBC Monitor BMP. cont on Genvoya Monitor Cultures Subjective Allergies: Coded Allergies: No Known Allergies (Unverified , 09/12/14) Subjective feeling better , Objective Vital Signs Last 24 Hour Vital Signs Date Time Temp Pulse Resp B/P Pulse Ox O2 Delivery O2 Flow Rate FiO2 08/06/16 08:04 77 08/06/16 08:00 98.6 75 21 98/64 98 Room Air 08/06/16 04:16 98.1 64 18 101/60 96 Room Air 08/06/16 04:00 67 08/06/16 00:22 98.2 76 19 101/59 95 Room Air 08/06/16 00:00 92 08/05/16 20:35 98.2 73 20 118/48 95 Room Air 08/05/16 20:00 86 08/05/16 16:00 99.0 73 21 104/61 98 Room Air 08/05/16 15:29 81 08/05/16 11:57 98.2 73 18 113/67 98 Room Air Height (Feet): 5 Height (Inches): 6.00 Weight (Pounds): 158 HEENT: mucous membranes moist Respiratory/Chest: lungs clear Cardiovascular: normal peripheral pulses Abdomen: normal bowel sounds Laboratory Tests Test 08/06/16 03:55 White Blood Count 8.5 K/UL (4.8-10.8) # Red Blood Count 4.50 M/UL (4.70-6.10) L Hemoglobin 8.9 G/DL (14.2-18.0) L Hematocrit 30.6 % (42.0-52.0) L Mean Corpuscular Volume 68 FL (80-99) L Mean Corpuscular Hemoglobin 19.7 PG (27.0-31.0) L Mean Corpuscular Hemoglobin Concent 29.0 G/DL (32.0-36.0) L Red Cell Distribution Width 21.5 % (11.6-14.8) H Platelet Count 252 K/UL (150-450) Mean Platelet Volume 7.2 FL (6.5-10.1) Neutrophils (%) (Auto) 75.5 % (45.0-75.0) H Lymphocytes (%) (Auto) 11.8 % (20.0-45.0) L Monocytes (%) (Auto) 9.0 % (1.0-10.0) Eosinophils (%) (Auto) 3.1 % (0.0-3.0) H Basophils (%) (Auto) 0.6 % (0.0-2.0) Sodium Level 139 mEQ/L (135-145) Potassium Level 4.1 mEQ/L (3.4-4.9) Chloride Level 101 mEQ/L (98-107) Carbon Dioxide Level 25 mEQ/L (20-30) Anion Gap 13 (5-15) Blood Urea Nitrogen 10 mg/dL (7-23) Creatinine 0.8 mg/dL (0.7-1.2) Estimat Glomerular Filtration Rate > 60 mL/min (>60) Glucose Level 96 mg/dL (74-106) Calcium Level 7.9 mg/dL (8.6-10.2) L Magnesium Level 1.9 mg/dL (1.7-2.5) Current Medications Medications (Trade) Dose Ordered Sig/Antonietta Route PRN Reason Start Time Stop Time Status Last Admin Dose Admin Acetaminophen (Tylenol) 650 mg Q4H PRN ORAL fever 08/04/16 13:45 09/03/16 13:44 Al Hydroxide/Mg Hydroxide (Mylanta II) 30 ml Q6H PRN ORAL dyspepsia 08/04/16 13:45 09/03/16 13:44 Albuterol/ Ipratropium 3 ml 3 ml Q4H PRN HHN Shortness of Breath 08/04/16 13:45 08/09/16 13:44 Cefepime HCl/ Dextrose (Maxipime/D5W) 55 ml @ 110 mls/hr Q12HR@0600,1800 IV 08/04/16 18:00 08/11/16 17:59 08/06/16 05:20 Metronidazole (Flagyl) 100 ml @ 100 mls/hr Q8H IVPB 08/06/16 01:00 08/13/16 00:59 08/06/16 08:56 Nitroglycerin (Ntg) 0.4 mg Q5MIN X 3 DOSES PRN SL Prn Chest Pain 08/04/16 13:45 09/03/16 13:44 Non-Formulary Medication 1 ea 1 ea DAILY ORAL 08/06/16 09:00 09/05/16 08:59 UNV Ondansetron HCl (Zofran) 4 mg Q6H PRN IVP Nausea & Vomiting 08/04/16 13:45 09/03/16 13:44 Oxycodone HCl (Roxicodone) 15 mg Q12H PRN ORAL For Pain 08/04/16 16:45 08/11/16 16:44 08/06/16 10:20 Polyethylene Glycol (Miralax) 17 gm DAILYPRN PRN ORAL Constipation 08/04/16 13:45 09/03/16 13:44 Promethazine HCl/ Codeine (Phenergan with Codeine) 5 ml Q4H PRN ORAL For Cough 08/04/16 13:45 09/03/16 13:44 Temazepam (Restoril) 15 mg HSPRN PRN ORAL Insomnia 08/04/16 13:45 08/11/16 13:44 JOANNE NATHAN M.D. Aug 06, 2016 11:51
[2016-08-06 12:06] VITALS: BP 107/67
--- NOTE | 2016-08-06 12:26 | Pulmonology Progress Note ---
Assessment/Plan Assessment/Plan ASSESSMENT abnormal capsule endoscopy s/p enteroscopy with biopsy duodenal edema transient leucocytosis -resolved aspiration PNA iron deficiency anemia e/lyte imbalance ( hypo Mg )-resolved acute DVT tibioperoneal vein HIV status PLAN OF CARE O2 HHN prn CXR with LLL infiltrate, empiric abx, change to oral prior to dc supplemental O2, HHN prn titrate to keep sat above 92% pulse oximetry stable on RA fup with CXR antitussive prn GI follows biopsy of small bowel mucosa with no significant pathological abnormalities, no dysplasia, no malignancy, no evidence of acute or chronic inflammation HH remains at baseline, anemia workup with evidence of iron deficiency anemia, Venofer given elevated CEA-4.5 recommend colonoscopy as outpt HAART therapy continues Mg replaced and stable Venous Duplex with evidence of acute DVT tibioperoneal vein, declined IVC filter placement GI cleared for dc po abx fup with PMD case discussed and evaluated by supervising physician Subjective Allergies: Coded Allergies: No Known Allergies (Unverified , 09/12/14) Subjective no fever, transient leucocytosis present yesterday, resolved HH at baseline, no trend down denies abdominal pain, n/v/, episode of bleeding on RA sat stable Objective Last 24 Hour Vital Signs Date Time Temp Pulse Resp B/P Pulse Ox O2 Delivery O2 Flow Rate FiO2 08/06/16 12:06 99.1 77 21 107/67 99 Room Air 08/06/16 08:04 77 08/06/16 08:00 98.6 75 21 98/64 98 Room Air 08/06/16 04:16 98.1 64 18 101/60 96 Room Air 08/06/16 04:00 67 08/06/16 00:22 98.2 76 19 101/59 95 Room Air 08/06/16 00:00 92 08/05/16 20:35 98.2 73 20 118/48 95 Room Air 08/05/16 20:00 86 08/05/16 16:00 99.0 73 21 104/61 98 Room Air 08/05/16 15:29 81 Intake and Output 08/05/16 08/06/16 19:00 07:00 Intake Total 940.0 ml 515 ml Balance 940.0 ml 515 ml Intake Oral 300 ml 360 ml IV Total 640.0 ml 155 ml General Appearance: WD/WN, no acute distress HEENT: normocephalic, atraumatic, anicteric, mucous membranes moist, PERRL Respiratory/Chest: lungs clear, no respiratory distress, no accessory muscle use Cardiovascular: normal rate, regular rhythm, no JVD Abdomen: soft, non tender, non distended Genitourinary: normal external genitalia Extremities: no edema Neurologic/Psychiatric: no motor/sensory deficits, alert, oriented x 3, responsive Musculoskeletal: normal muscle bulk Laboratory Tests 08/06/16 03:55: White Blood Count 8.5#, Red Blood Count 4.50L, Hemoglobin 8.9L, Hematocrit 30.6L , Mean Corpuscular Volume 68L, Mean Corpuscular Hemoglobin 19.7L, Mean Corpuscular Hemoglobin Concent 29.0L, Red Cell Distribution Width 21.5H, Platelet Count 252, Mean Platelet Volume 7.2, Neutrophils (%) (Auto) 75.5H, Lymphocytes (%) (Auto) 11.8L, Monocytes (%) (Auto) 9.0, Eosinophils (%) (Auto) 3.1H, Basophils (%) (Auto) 0.6, Sodium Level 139, Potassium Level 4.1, Chloride Level 101, Carbon Dioxide Level 25, Anion Gap 13, Blood Urea Nitrogen 10, Creatinine 0.8, Estimat Glomerular Filtration Rate > 60, Glucose Level 96, Calcium Level 7.9L, Magnesium Level 1.9 Current Medications Medications (Trade) Dose Ordered Sig/Antonietta Route PRN Reason Start Time Stop Time Status Last Admin Dose Admin Acetaminophen (Tylenol) 650 mg Q4H PRN ORAL fever 08/04/16 13:45 09/03/16 13:44 Al Hydroxide/Mg Hydroxide (Mylanta II) 30 ml Q6H PRN ORAL dyspepsia 08/04/16 13:45 09/03/16 13:44 Albuterol/ Ipratropium 3 ml 3 ml Q4H PRN HHN Shortness of Breath 08/04/16 13:45 08/09/16 13:44 Cefepime HCl/ Dextrose (Maxipime/D5W) 55 ml @ 110 mls/hr Q12HR@0600,1800 IV 08/04/16 18:00 08/11/16 17:59 08/06/16 05:20 Metronidazole (Flagyl) 100 ml @ 100 mls/hr Q8H IVPB 08/06/16 01:00 08/13/16 00:59 08/06/16 08:56 Nitroglycerin (Ntg) 0.4 mg Q5MIN X 3 DOSES PRN SL Prn Chest Pain 08/04/16 13:45 09/03/16 13:44 Non-Formulary Medication 1 ea 1 ea DAILY ORAL 08/06/16 09:00 09/05/16 08:59 UNV Ondansetron HCl (Zofran) 4 mg Q6H PRN IVP Nausea & Vomiting 08/04/16 13:45 09/03/16 13:44 Oxycodone HCl (Roxicodone) 15 mg Q12H PRN ORAL For Pain 08/04/16 16:45 08/11/16 16:44 08/06/16 10:20 Polyethylene Glycol (Miralax) 17 gm DAILYPRN PRN ORAL Constipation 08/04/16 13:45 09/03/16 13:44 Promethazine HCl/ Codeine (Phenergan with Codeine) 5 ml Q4H PRN ORAL For Cough 08/04/16 13:45 09/03/16 13:44 Temazepam (Restoril) 15 mg HSPRN PRN ORAL Insomnia 08/04/16 13:45 08/11/16 13:44 Som MosesZayda li NP Aug 06, 2016 12:26
[2016-08-06] MEDS ORDERED: Tubing IV Secondary IV ONE (12:32)
--- NOTE | 2016-08-06 12:45 | Diagnostic Imaging Report ---
APPROVED REPORT CPT Code: 17334 Present Symptoms Lower Extremity Pain: Left Comments: Hx left upper extremity DVT 07/06/16 RIGHT LEG: Venous imaging reveals a patent deep venous system. There is no evidence of thrombus within the femoral, popliteal or tibial segments. The greater saphenous vein is also within normal limits. Doppler indicates normal spontaneous flow within these segments. LEFT LEG: Venous imaging reveals acute thrombus in the tibioperoneal trunk vein. Imaging reveals patency of the common femoral, popliteal and calf veins (anterior tibial, posterior tibial and peroneal). The greater saphenous vein is within normal limits. DELBERT Dominguez was informed of abnormal results at 17:55 hrs.
--- NOTE | 2016-08-06 13:10 | GI Progress Note ---
Assessment/Plan Problems: (1) DVT (deep venous thrombosis) ICD Codes: I82.409 - Acute embolism and thrombosis of unspecified deep veins of unspecified lower extremity SNOMED: 580311279 (2) Upper GI bleed ICD Codes: K92.2 - Gastrointestinal hemorrhage, unspecified SNOMED: 24618742 (3) Leukocytosis ICD Codes: D72.829 - Elevated white blood cell count, unspecified SNOMED: 863149428, 148840720 (4) Anemia ICD Codes: D64.9 - Anemia, unspecified SNOMED: 556445816 (5) Protein malnutrition ICD Codes: E46 - Unspecified protein-calorie malnutrition SNOMED: 941531073 (6) Encounter for diagnostic endoscopy ICD Codes: Z01.818 - Encounter for other preprocedural examination SNOMED: 903242343, 267305054 (7) Small bowel bleed requiring more than 4 units of blood in 24 hours, ICU, or surgery ICD Codes: K92.2 - Gastrointestinal hemorrhage, unspecified SNOMED: 18558948, 45639832 Status: stable Status Narrative Discussed with Dr. Macario. Assessment/Plan SUMMARY OF FINDINGS: Abnormal enteroscopy with bowel edema in the small intestine but unfortunately we could not get to the area, which was seen with the capsule. RECOMMENDATIONS: 1. Followup biopsy results. 2. The patient was intubated during this procedure given possible aspiration, we will follow. abx discharged today, to follow up in clinic rx abx >> levaquin + flagyl iron deficiency >> venofer electrolyte replacement patient to be scheduled for Endoscopic Double Balloon at [facility] to evaluate bowel edema Subjective Gastrointestinal/Abdominal: Reports: no symptoms Objective Last 24 Hour Vital Signs Date Time Temp Pulse Resp B/P Pulse Ox O2 Delivery O2 Flow Rate FiO2 08/06/16 12:06 99.1 77 21 107/67 99 Room Air 08/06/16 08:04 77 08/06/16 08:00 98.6 75 21 98/64 98 Room Air 08/06/16 04:16 98.1 64 18 101/60 96 Room Air 08/06/16 04:00 67 08/06/16 00:22 98.2 76 19 101/59 95 Room Air 08/06/16 00:00 92 08/05/16 20:35 98.2 73 20 118/48 95 Room Air 08/05/16 20:00 86 08/05/16 16:00 99.0 73 21 104/61 98 Room Air 08/05/16 15:29 81 Intake and Output 08/05/16 08/06/16 19:00 07:00 Intake Total 940.0 ml 515 ml Balance 940.0 ml 515 ml Intake Oral 300 ml 360 ml IV Total 640.0 ml 155 ml Laboratory Tests Test 08/06/16 03:55 White Blood Count 8.5 K/UL (4.8-10.8) # Red Blood Count 4.50 M/UL (4.70-6.10) L Hemoglobin 8.9 G/DL (14.2-18.0) L Hematocrit 30.6 % (42.0-52.0) L Mean Corpuscular Volume 68 FL (80-99) L Mean Corpuscular Hemoglobin 19.7 PG (27.0-31.0) L Mean Corpuscular Hemoglobin Concent 29.0 G/DL (32.0-36.0) L Red Cell Distribution Width 21.5 % (11.6-14.8) H Platelet Count 252 K/UL (150-450) Mean Platelet Volume 7.2 FL (6.5-10.1) Neutrophils (%) (Auto) 75.5 % (45.0-75.0) H Lymphocytes (%) (Auto) 11.8 % (20.0-45.0) L Monocytes (%) (Auto) 9.0 % (1.0-10.0) Eosinophils (%) (Auto) 3.1 % (0.0-3.0) H Basophils (%) (Auto) 0.6 % (0.0-2.0) Sodium Level 139 mEQ/L (135-145) Potassium Level 4.1 mEQ/L (3.4-4.9) Chloride Level 101 mEQ/L (98-107) Carbon Dioxide Level 25 mEQ/L (20-30) Anion Gap 13 (5-15) Blood Urea Nitrogen 10 mg/dL (7-23) Creatinine 0.8 mg/dL (0.7-1.2) Estimat Glomerular Filtration Rate > 60 mL/min (>60) Glucose Level 96 mg/dL (74-106) Calcium Level 7.9 mg/dL (8.6-10.2) L Magnesium Level 1.9 mg/dL (1.7-2.5) Height (Feet): 5 Height (Inches): 6.00 Weight (Pounds): 158 General Appearance: no apparent distress, alert Cardiovascular: normal rate Respiratory/Chest: normal breath sounds, no respiratory distress Abdominal Exam: normal bowel sounds, non tender, soft Extremities: normal range of motion Gloria Patrick N.P. Aug 06, 2016 13:10
--- NOTE | 2016-08-06 13:26 | Discharge Summary ---
Discharge Summary Hospital Course Date of Admission Aug 04, 2016 at 15:12 Date of Discharge Aug 06, 2016 at 12:33 Admitting Diagnosis Small Intestinal Lesion HPI This is a 50 year old male patient seen in the [facility] clinic for evaluation of anemia. The patient has been here at [facility] multiple times for anemia requiring blood transfusion over 4 units. The patient had scheduled an outpatient enteroscopy procedure to evaluate a small intestinal lesion which was capture via small bowel capsule endoscopy. The patient was intubated during this procedure (see full procedure note) and was then admitted for observation turn to full admission. Chest x-ray showed left lower lobe infiltrate. Infectious Disease consultation has been requested for further evaluation of the patient's antibiotic management. Pulmonary consulted to manage airway. PAST MEDICAL HISTORY: (1) Anemia (2) Upper GI bleed (3) Leukocytosis (4) Protein malnutrition Consultations Infectious Disease: Terry Monroe MD Pulmonary: Romeo Multani MD Hospital Course S/P Enteroscopy SUMMARY OF FINDINGS: Abnormal enteroscopy with bowel edema in the small intestine but unfortunately we could not get to the area, which was seen with the capsule. Patient was admitted to [facility] for observation due to aspiration event of procedure. Patient's airway was monitored. H&H observed given the patients history of GI bleed. IV hydration with electrolyte replacement ordered. The patient was also iron deficient in which we ordered a bag of venofer. Infectious disease and pulmonary consulted. Once stable, patient will require a Endoscopic Double Balloon only performed at [facility] to evaluate the small bowel lesion. Infectious Disease: Terry Monroe MD ASSESSMENT: 1. Aspiration pneumonia. 2. Human immunodeficiency virus, on Genvoya, unknown CD4 count viral load. PLAN: 1. We will continue the patient on cefepime. Add Flagyl. 2. Monitor CBC. 3. Monitor BMP. 4.cont on Genvoya. 5. Cultures. 6. Based on the patient's clinical course and labs, we will do further recommendation. Pulmonary: Romeo Multani MD Assessment/Plan (1) Aspiration pneumonia (2) HIV disease (3) Leukocytosis Assessment/Plan respiratory treatment titrate fo2 to sat of 92% IV antibiotics dvt prohylaxis Discharge Condition Upon Discharge: stable Discharge Disposition Patient was discharged to Home (01) See nursing medical reconciliation list. Infectious disease RX >> Levaquin + Flagyl Discharge Diagnoses: (1) Aspiration pneumonia (2) Upper GI bleed (3) Anemia (4) Protein malnutrition (5) Encounter for diagnostic endoscopy (6) Leukocytosis Discharge Instructions Discharge Instructions Follow up with: Dr. Macario, we will contact patient to schedule appointment. Call MD/Return to Hospital if: s/sx of active bleed or unrelieved pain Diet: regular Activity: resume normal activities Gloria Patrick N.P. Aug 06, 2016 13:26
--- NOTE | 2016-08-06 19:12 | Cardiology Report ---
APPROVED REPORT EKG Measurement Heart [id number] IL [id number] Sinus bradycardia Otherwise normal ECG
[2016-08-09] MEDS ORDERED: BACTRIM DS TAB1 EAC1 ORAL (12:22)
[2016-08-09] MEDS ORDERED: LEVAQUIN500 MG ORAL (12:24)
[2016-08-09] MEDS ORDERED: METRONIDAZOLE500 MG ORAL (12:24)
== END 2016-08-06 12:33 | disposition home or self-care (01) | DRG 177 ==
LOC: GAS 09:47 → 2W 15:12
DX: J69.0 Pneumonitis due to inhalation of food and vomit (principal); B20 Human immunodeficiency virus [HIV] disease; E46 Unspecified protein-calorie malnutrition; K92.2 Gastrointestinal hemorrhage, unspecified; I82.4Z9 Acute embolism and thrombosis of unspecified deep veins of unspecified distal lower extremity; K21.9 Gastro-esophageal reflux disease without esophagitis; F32.9 Major depressive disorder, single episode, unspecified; D50.9 Iron deficiency anemia, unspecified
CPT/HCPCS: 36415; 71010; 74000; 80048; 80053; 80069; 82378; 82607; 82746; 83540; 83550; 83615; 83735; 85007; 85025; 85044; 85060; 85610; 85651; 85730; 86850; 86900; 86901; 86920; 87040; 93005; 93970; 94003; 94150